=== PATIENT | male | born 1955 | race Caucasian/White ===

== ENCOUNTER 2019-06-04 08:41 | Emergency (ER) | payer MEDICARE, OTHER ==
--- NOTE | 2019-06-04 09:30 | ED Physician Documentation ---
PD HPI DYSPNEA - Stated complaint Stated Complaint: FEET AND ANKLE SWELLING - Chief complaint Chief Complaint: General - History obtained from History obtained from: Patient - History of Present Illness Timing - onset: How many days ago (about 10 days of noting bilateral lower leg edema. No dyspnea nor orthopnea.) Timing - onset during: Light activity (notes legs more swollen during the day and improve with sleep.) Timing - duration: Days (10) Timing - details: Gradual onset Inciting event(s): Other (had been drinking more regularly the past month and also eating more frozen/processed foods with his left him just over a month ago. Also stress because mother in law recently very ill and few days ago. His dog of 15 years also this past week.). No: URI, Immobilization/travel Associated symptoms: Bilateral edema. No: Fever, Cough, Wheezing, Chest pain / discomfort, Palpitations Similar symptoms before: Has not had sx before Recently seen: Not recently seen Review of Systems Constitutional: denies: Fever, Chills Nose: denies: Rhinorrhea / runny nose, Congestion Throat: denies: Sore throat Cardiac: reports: Pedal edema. denies: Chest pain / pressure, Palpitations, Calf pain Respiratory: denies: Cough GI: denies: Abdominal Pain, Nausea, Vomiting, Diarrhea Skin: denies: Lesions Musculoskeletal: denies: Neck pain, Back pain Psychiatric: reports: Depressed (recently due to recent stressful events.), Insomnia. denies: Suicidal, Anxiety PD PAST MEDICAL HISTORY - Past Medical History Past Medical History: Yes Cardiovascular: None Respiratory: Asthma, COPD (but doing better after quiting smoking 6 months ago. ) Neuro: None Endocrine/Autoimmune: None GI: Ulcers Psych: Depression, Anxiety - Past Surgical History Past Surgical History: Yes - Present Medications Home Medications: Ambulatory Orders Medication Instructions Recorded Confirmed No Known Home Medications 06/04/19 06/04/19 - Allergies Allergies/Adverse Reactions: Allergies Allergy/AdvReac Type Severity Reaction Status Date / Time No Known Drug Allergies Allergy Verified 06/04/19 08:58 - Social History Does the pt smoke?: Yes Smoking Status: Former smoker Does the pt drink ETOH?: Yes Does the pt have substance abuse?: No - Family History Family history: denies: CAD PD ED PE NORMAL - Vitals Vital signs reviewed: Yes - General General: Alert and oriented X 3, No acute distress, Well developed/nourished - HEENT HEENT: PERRL (not appearing icteric), Moist mucous membranes, Pharynx benign - Neck Neck: Supple, no meningeal sign, No JVD - Cardiac Cardiac: RRR, No murmur - Respiratory Respiratory: Clear bilaterally (no crackles) - Abdomen Abdomen: Normal bowel sounds, Soft, Non tender, Non distended, Other (liver feels some enlarged to percussion but not tender. ) - Back Back: No CVA TTP - Derm Derm: Normal color, Warm and dry - Extremities Extremities: No tenderness to palpate, Normal ROM s pain, No calf tenderness / cord, Other (1+ bilateral leg and ankle edema. ) - Neuro Neuro: Alert and oriented X 3, No motor deficit, Normal speech Results - Vitals Vitals: Vital Signs - 24 hr 06/04/19 06/04/19 06/04/19 08:45 10:00 13:30 Temperature 36.5 C Heart Rate 77 74 72 Respiratory 18 16 16 Rate Blood Pressure 160/95 H 144/90 H 157/97 H O2 Saturation 100 96 96 Oxygen O2 Source Room air - Labs Labs: Laboratory Tests 06/04/19 06/04/19 06/04/19 09:35 10:30 10:30 WBC 4.1 L RBC 4.12 L Hgb 13.8 L Hct 35.8 L MCV 86.9 MCH 33.5 H MCHC 38.5 H RDW 17.1 H Plt Count 82 L Neut # (Auto) 2.1 Lymph # (Auto) 1.4 L Taliaferro # (Auto) 0.4 Eos # (Auto) 0.1 Baso # (Auto) 0.0 Absolute Nucleated RBC 0.00 Nucleated RBC % 0.0 Sodium 136 Potassium 3.9 Chloride 98 L Carbon Dioxide 24 Anion Gap 13.0 BUN 13 Creatinine 0.6 Estimated GFR (MDRD) 136 Glucose 88 Calcium 8.0 L Magnesium 1.8 Total Bilirubin 3.0 H AST 152 H ALT 122 H Alkaline Phosphatase 205 H Troponin I High Sens B-Natriuretic Peptide Total Protein 5.0 L Albumin 2.8 L Globulin 2.3 Albumin/Globulin Ratio 1.3 Lipase 66 H Urine Color YELLOW Urine Clarity CLEAR Urine pH 6.0 Ur Specific [place] 1.010 Urine Protein NEGATIVE Urine Glucose (UA) NEGATIVE Urine Ketones NEGATIVE Urine Occult Blood NEGATIVE Urine Nitrite NEGATIVE Urine Bilirubin NEGATIVE Urine Urobilinogen 0.2 (NORMAL) Ur Leukocyte Esterase NEGATIVE Ur Microscopic Review NOT INDICATED Urine Culture Comments NOT INDICATED 06/04/19 06/04/19 10:30 10:30 WBC RBC Hgb Hct MCV MCH MCHC RDW Plt Count Neut # (Auto) Lymph # (Auto) Taliaferro # (Auto) Eos # (Auto) Baso # (Auto) Absolute Nucleated RBC Nucleated RBC % Sodium Potassium Chloride Carbon Dioxide Anion Gap BUN Creatinine Estimated GFR (MDRD) Glucose Calcium Magnesium Total Bilirubin AST ALT Alkaline Phosphatase Troponin I High Sens 21.3 H* B-Natriuretic Peptide 52 Total Protein Albumin Globulin Albumin/Globulin Ratio Lipase Urine Color Urine Clarity Urine pH Ur Specific [place] Urine Protein Urine Glucose (UA) Urine Ketones Urine Occult Blood Urine Nitrite Urine Bilirubin Urine Urobilinogen Ur Leukocyte Esterase Ur Microscopic Review Urine Culture Comments PD MEDICAL DECISION MAKING - ED course Complexity details: reviewed results, re-evaluated patient (LFTs are up but does not seem enough likely liver damage for leg edema/portal HTN. He had been eating more processed foods and frozen foods the past month, so I think it is salt retention and dependent edema. No signs of CHF nor RETA. ), considered differential (consider CHF, RETA, liver process, or just dependent edema. ), d/w patient Departure - Departure Disposition: 01 Home, Self Care Clinical Impression: Elevated liver enzymes, Alcohol use, Leg edema Condition: Stable Record reviewed to determine appropriate education?: Yes Instructions: ED Edema Legs Bilateral Follow-Up: Luigi Fowler [Primary Care Provider] - Comments: Your liver enzymes are elevated likely from continued excess alcohol use. Try to cut down on the degree of alcohol use significantly. There are no signs of kidney failure or heart failure nor anemia based on your blood tests. You do not have any obvious gallstones or gallbladder problems to account for elevation of the liver enzymes. I think your leg edema is more related to this dietary and salt intake. Try to have less processed food in your diet and hydrate well. Elevate and rest your legs often during the day. You could use some snug fitting or compression socks during the day to help reduce some of the swelling as well. Follow-up with your primary care next week as planned. Discharge Date/Time: 06/04/19 13:48
--- NOTE | 2019-06-04 10:26 | XRAY Report ---
Reason: dyspnea/ leg edema Procedure Date: 06/04/2019 Accession Number: [id number] / [id number] Procedure: XR - Chest 2 View X-Ray CPT Code: 29064 Final Report FULL RESULT: EXAM: CHEST RADIOGRAPHY EXAM DATE: 06/04/2019 09:57 AM. CLINICAL HISTORY: Dyspnea/ leg edema. COMPARISON: CHEST 2 VIEW PA/LAT 03/31/2016 11:08 AM. TECHNIQUE: 2 views. FINDINGS: Lungs/Pleura: Increased lung markings. No focal opacities. No effusions. Mediastinum: Stable Other: None. IMPRESSION: Obstructive airways disease RADIA
[2019-06-04 10:43] LABS: BILIRUBIN,URINE NEGATIVE (NEGATIVE); GLUCOSE, URINE (UA) NEGATIVE (NEGATIVE); KETONES,URINE (UA) NEGATIVE (NEGATIVE); LEUKOCYTE ESTERASE, URINE NEGATIVE (NEGATIVE); NITRITE,URINE NEGATIVE (NEGATIVE); OCCULT BLOOD,URINE NEGATIVE (NEGATIVE); PROTEIN,URINE NEGATIVE (NEGATIVE); UROBILINOGEN,URINE 0.2 (NORMAL) E.U./dL (NORMAL)
[2019-06-04 10:44] LABS: CLARITY,URINE CLEAR (CLEAR)
[2019-06-04 10:46] LABS: BASOPHILS % (AUTO) 0.5 %; EOSINOPHILS # (AUTO) 0.1 10^3/uL (0.0-0.7); EOSINOPHILS % (AUTO) 1.7 %; HGB - HEMOGLOBIN 13.8 g/dL (14.0-18.0); LYMPHOCYTES # (AUTO) 1.4 10^3/uL (1.5-3.5); LYMPHOCYTES % (AUTO) 35.1 %; MEAN CORPUSCULAR HEMOGLOBIN 33.5 pg (27.0-31.0); MEAN CORPUSCULAR HGB CONC 38.5 g/dL (32.0-36.0); MEAN CORPUSCULAR VOLUME 86.9 fL (80.0-94.0); MONOCYTES # (AUTO) 0.4 10^3/uL (0.0-1.0); MONOCYTES % (AUTO) 9.6 %; NEUTROPHILS # (AUTO) 2.1 10^3/uL (1.5-6.6); NEUTROPHILS % (AUTO) 51.9 %; PLT - PLATELET COUNT 82 10^3/uL (130-450); RED BLOOD COUNT 4.12 10^6/uL (4.70-6.10); RED CELL DISTRIBUTION WIDTH 17.1 % (12.0-15.0); WHITE BLOOD COUNT 4.1 x10^3/uL (4.8-10.8)
[2019-06-04 11:45] LABS: ALBUMIN 2.8 g/dL (3.2-5.5); ALBUMIN/GLOBULIN RATIO 1.3 (1.0-2.2); CREATININE 0.6 mg/dL (0.6-1.2); MAGNESIUM 1.8 mg/dL (1.7-2.8)
--- NOTE | 2019-06-04 13:32 | Ultrasound Report ---
Reason: elevated LFTs Procedure Date: 06/04/2019 Accession Number: [id number] / [id number] Procedure: US - Abdomen Limited CPT Code: Final Report FULL RESULT: EXAM: ABDOMEN ULTRASOUND LIMITED, RUQ EXAM DATE: 06/04/2019 01:05 PM. CLINICAL HISTORY: Elevated LFTs. COMPARISON: ABDOMEN/PELVIS W/ 07/27/2013 4:03 PM. TECHNIQUE: Real-time scanning was performed with static images obtained. FINDINGS: Liver: The liver parenchyma is moderately echogenic diffusely consistent with fatty infiltration. There is some probable fatty sparing near the gallbladder fossa. No evidence for cirrhosis or mass lesion. 16.9 cm. Main portal vein flow: Hepatopetal. Gallbladder: No wall thickening, calculi or sonographic Brown sign evident. Biliary System: CBD measures 5 mm. No intrahepatic or extrahepatic ductal dilatation. Other: The right kidney shows no calculi or hydronephrosis. IMPRESSION: 1. Moderately fatty infiltrated liver with probable fatty sparing near the gallbladder fossa. 2. No convincing evidence for cholelithiasis or cholecystitis. RADIA
[2019-06-04 14:01] VITALS: BP 157/97
== END 2019-06-04 13:48 | disposition home or self-care (01) ==
LOC: ED 08:41
DX: R60.0 Localized edema (principal); R74.8 Abnormal levels of other serum enzymes; Z72.89 Other problems related to lifestyle; Z87.891 Personal history of nicotine dependence
CPT/HCPCS: 36415; 71046; 76705; 80053; 81001; 81003; 83690; 83735; 83880; 84484; 85025; 87086; 93005; 99284

== ENCOUNTER 2020-12-06 05:43 | Outpatient (CLI) | payer MEDICARE, OTHER | END 2020-12-06 05:44 | disposition critical access hospital (66) | LOC: EMS 05:43 | DX: R42 Dizziness and giddiness (principal); K92.0 Hematemesis; K92.1 Melena; M25.552 Pain in left hip | CPT/HCPCS: A0425; A0429 ==

== ENCOUNTER 2020-12-06 05:54 | Inpatient (IN) | payer MEDICARE, OTHER ==
[2020-12-06] MEDS ORDERED: FOLIC ACID INJ 1 MG, THIAMINE INJ 100 MG, MAGNESIUM SULFATE 2 GM, MULTIVITAMIN 10 ML in... IV STA ×5 (06:12)
[2020-12-06] MEDS ORDERED: PANTOPRAZOLE 40 MG VIAL IVP STA (06:13)
[2020-12-06] MEDS ORDERED: MAGNESIUM SULFATE 1 GM/2 ML VIAL ONE (06:19)
[2020-12-06] MEDS ORDERED: FOLIC ACID 5 MG/1 ML 10ML MDV ONE (06:19)
[2020-12-06] MEDS ORDERED: THIAMINE 100 MG/1 ML 2 ML MDV ONE (06:19)
--- NOTE | 2020-12-06 06:38 | ED Physician Documentation ---
History of Present Illness - Stated complaint Stated Complaint: GLF, LEFT HIP PAIN - Chief complaint Chief Complaint: Trauma Ext - History obtained from History obtained from: Patient - History of Present Illness Timing: Yesterday - Additonal information Additional information: 65-year-old male in his usual state of health developed some nausea and vomiting yesterday afternoon and he vomited black material and this was also present in his stool at the same time. He has not had this happen to him previously he vomited about 5 times he has had multiple bowel movements as well. He got up to go somewhere this morning and tripped and fell onto his left hip and his called the ambulance. He complains of pain to the hip and pain with motion of the leg. He did not hit his head and he did not lose consciousness. He has a prior history of alcohol abuse and states that he is a beer drinker and drinks a fair amount on a regular basis. Review of Systems Constitutional: denies: Fever Eyes: denies: Decreased vision Ears: denies: Ear pain Nose: denies: Congestion Throat: denies: Sore throat Cardiac: denies: Chest pain / pressure, Palpitations Respiratory: denies: Dyspnea, Cough GI: reports: Nausea, Vomiting, Bloody / black stool. denies: Abdominal Pain : denies: Dysuria, Frequency Skin: denies: Rash Musculoskeletal: reports: Extremity pain, Joint pain. denies: Neck pain, Back pain Neurologic: denies: Generalized weakness, Focal weakness, Numbness PD PAST MEDICAL HISTORY - Past Medical History Past Medical History: Yes Cardiovascular: None Respiratory: Asthma, COPD Neuro: None Endocrine/Autoimmune: None GI: Ulcers Psych: Depression, Anxiety - Past Surgical History Past Surgical History: Yes - Present Medications Home Medications: Ambulatory Orders Medication Instructions Recorded Confirmed No Known Home Medications 06/04/19 12/06/20 - Allergies Allergies/Adverse Reactions: Allergies Allergy/AdvReac Type Severity Reaction Status Date / Time No Known Drug Allergies Allergy Verified 12/06/20 06:12 - Social History Does the pt smoke?: Yes Smoking Status: Current every day smoker Does the pt drink ETOH?: Yes Does the pt have substance abuse?: No - Immunizations Immunizations are current?: No Immunizations: TDAP current <10years PD ED PE NORMAL - Vitals Vital signs reviewed: Yes - General General: Alert and oriented X 3, Well developed/nourished, Other (Pale appearing male laying on his side interactive and cooperative with maroon stool at the edge of the shorts.) - HEENT HEENT: Atraumatic, PERRL, EOMI - Neck Neck: Supple, no meningeal sign, No bony TTP - Cardiac Cardiac: No murmur, Other (Tachycardic to 130) - Respiratory Respiratory: No respiratory distress, Clear bilaterally - Abdomen Abdomen: Normal bowel sounds, Soft, Non tender, Non distended, No organomegaly - Rectal Rectal: Deferred, Other (Maroon stool covering the buttocks is sampled for fit) - Back Back: No CVA TTP, No spinal TTP - Derm Derm: Warm and dry, No rash, Other (Pale in color) - Extremities Extremities: No deformity, No edema, Other (Pain to movement of the left leg pain to direct palpation over the trochanter) - Neuro Neuro: Alert and oriented X 3, 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, No motor deficit, No sensory deficit, Normal speech Eye Opening: Spontaneous Motor: Obeys Commands Verbal: Oriented GCS Score: 15 Results - Vitals Vitals: Vital Signs - 24 hr 12/06/20 12/06/20 12/06/20 06:01 07:02 07:46 Temperature 37.1 C 36.0 C L 36 C L Heart Rate 133 H 108 H 96 Respiratory 18 26 H 19 Rate Blood Pressure 86/56 L 94/63 109/94 H O2 Saturation 100 99 100 12/06/20 12/06/20 12/06/20 07:49 08:00 08:01 Temperature 36 C L 35.7 C L 35.7 C L Heart Rate 92 91 93 Respiratory 19 16 16 Rate Blood Pressure 109/94 H 98/58 L 98/58 L O2 Saturation 96 12/06/20 12/06/20 12/06/20 08:16 08:36 08:37 Temperature 35.8 C L 35.8 C L 35.8 C L Heart Rate 93 94 91 Respiratory 20 18 16 Rate Blood Pressure 104/57 L 96/61 O2 Saturation 100 12/06/20 12/06/20 12/06/20 08:51 09:07 09:08 Temperature 35.9 C L 36 C L 36 C L Heart Rate 96 90 90 Respiratory 18 14 14 Rate Blood Pressure 90/59 L 107/63 107/63 O2 Saturation 100 12/06/20 12/06/20 09:42 10:00 Temperature 36.1 C L Heart Rate 92 93 Respiratory 12 14 Rate Blood Pressure 108/67 109/65 O2 Saturation 100 100 Oxygen O2 Source Room air - EKG (time done) 0635 Rate: Rate (enter#) (115) Rhythm: Sinus tachycardia, LAE Intervals: RBBB (incomplete) Compare to prior EKG: Changed from prior EKG (SPT 06-04-2019 the rate has increased) Computer interpretation: Agree with computer 0938 Rate: Rate (enter#) (92) Intervals: RBBB (atypical ) Ischemia: ST depression (V3,4 subtle ) Compare to prior EKG: Changed from prior EKG (SPT earlier today the rate has slowed and the subtle ST depression in V3-5 has improved. ) Computer interpretation: Agree with computer - Labs Labs: Microbiology 12/06/20 06:45 Occult Blood - Final Stool Laboratory Tests 12/06/20 12/06/20 12/06/20 06:30 06:30 06:30 WBC 8.4 RBC 1.99 L Hgb 6.7 L* Hct 20.2 L MCV 101.5 H MCH 33.7 H MCHC 33.2 RDW 17.2 H Plt Count 116 L MPV 12.2 H Neut # (Auto) 6.5 Lymph # (Auto) 1.3 L Harnett # (Auto) 0.5 Eos # (Auto) 0.0 Baso # (Auto) 0.0 Absolute Nucleated RBC 0.00 Nucleated RBC % 0.0 PT 17.1 H INR 1.6 H APTT 28.3 Sodium 130 L Potassium 5.3 H Chloride 93 L Carbon Dioxide 19 L Anion Gap 18.0 H BUN 29 H Creatinine 1.0 Estimated GFR (MDRD) 75 L Glucose 131 H Calcium 8.6 Total Bilirubin 2.9 H AST 69 H ALT 25 Alkaline Phosphatase 52 Troponin I High Sens Total Protein 5.5 L Albumin 3.0 L Globulin 2.5 Albumin/Globulin Ratio 1.2 Lipase 44 Nasal Adenovirus (PCR) Nasal B. parapertussis DNA (PCR) Nasal Coronavir 229E PCR Nasal Coronavir HKU1 PCR Nasal Coronavir NL63 PCR Nasal Coronavir OC43 PCR Nasal Enterovir/Rhinovir PCR Nasal Influenza B PCR Nasal Influenza A PCR Nasal Parainfluen 1 PCR Nasal Parainfluen 2 PCR Nasal Parainfluen 3 PCR Nasal Parainfluen 4 PCR Nasal RSV (PCR) Nasal B.pertussis DNA PCR Nasal C.pneumoniae (PCR) Nathan Human Metapneumo PCR Nasal M.pneumoniae (PCR) Nasal SARS-CoV-2 (PCR) Ethyl Alcohol < 5.0 Blood Type Antibody Screen Crossmatch IS Only 12/06/20 12/06/20 12/06/20 06:30 06:30 06:45 WBC RBC Hgb Hct MCV MCH MCHC RDW Plt Count MPV Neut # (Auto) Lymph # (Auto) [place] # (Auto) Eos # (Auto) Baso # (Auto) Absolute Nucleated RBC Nucleated RBC % PT INR APTT Sodium Potassium Chloride Carbon Dioxide Anion Gap BUN Creatinine Estimated GFR (MDRD) Glucose Calcium Total Bilirubin AST ALT Alkaline Phosphatase Troponin I High Sens 482.6 H* Total Protein Albumin Globulin Albumin/Globulin Ratio Lipase Nasal Adenovirus (PCR) NOT DETECTED Nasal B. parapertussis DNA (PCR) NOT DETECTED Nasal Coronavir 229E PCR NOT DETECTED Nasal Coronavir HKU1 PCR NOT DETECTED Nasal Coronavir NL63 PCR NOT DETECTED Nasal Coronavir OC43 PCR NOT DETECTED Nasal Enterovir/Rhinovir PCR NOT DETECTED Nasal Influenza B PCR NOT DETECTED Nasal Influenza A PCR NOT DETECTED Nasal Parainfluen 1 PCR NOT DETECTED Nasal Parainfluen 2 PCR NOT DETECTED Nasal Parainfluen 3 PCR NOT DETECTED Nasal Parainfluen 4 PCR NOT DETECTED Nasal RSV (PCR) NOT DETECTED Nasal B.pertussis DNA PCR NOT DETECTED Nasal C.pneumoniae (PCR) NOT DETECTED Nathan Human Metapneumo PCR NOT DETECTED Nasal M.pneumoniae (PCR) NOT DETECTED Nasal SARS-CoV-2 (PCR) NOT DETECTED Ethyl Alcohol Blood Type AB POSITIVE Antibody Screen NEGATIVE Crossmatch IS Only See Detail 12/06/20 09:51 WBC RBC Hgb Hct MCV MCH MCHC RDW Plt Count MPV Neut # (Auto) Lymph # (Auto) Harnett # (Auto) Eos # (Auto) Baso # (Auto) Absolute Nucleated RBC Nucleated RBC % PT INR APTT Sodium Potassium Chloride Carbon Dioxide Anion Gap BUN Creatinine Estimated GFR (MDRD) Glucose Calcium Total Bilirubin AST ALT Alkaline Phosphatase Troponin I High Sens 335.6 H* Total Protein Albumin Globulin Albumin/Globulin Ratio Lipase Nasal Adenovirus (PCR) Nasal B. parapertussis DNA (PCR) Nasal Coronavir 229E PCR Nasal Coronavir HKU1 PCR Nasal Coronavir NL63 PCR Nasal Coronavir OC43 PCR Nasal Enterovir/Rhinovir PCR Nasal Influenza B PCR Nasal Influenza A PCR Nasal Parainfluen 1 PCR Nasal Parainfluen 2 PCR Nasal Parainfluen 3 PCR Nasal Parainfluen 4 PCR Nasal RSV (PCR) Nasal B.pertussis DNA PCR Nasal C.pneumoniae (PCR) Nathan Human Metapneumo PCR Nasal M.pneumoniae (PCR) Nasal SARS-CoV-2 (PCR) Ethyl Alcohol Blood Type Antibody Screen Crossmatch IS Only - Rads (name of study) hip L Radiology: Prelim report reviewed (Impression: Comminuted intertrochanteric femur fracture, displaced and angulated.), EMP read indepedently, See rad report PD MEDICAL DECISION MAKING - ED course Complexity details: reviewed old records, reviewed results, re-evaluated patient, considered differential, d/w patient ED course: 65-year-old male presents to the emergency department with an upper GI bleed which is left him with an H&H of 6.7 and 20.2 and he arrives to the emergency department tachycardic and hypotensive with an injury to his left hip. At shift change Dr. Orlando places 2 peripheral IVs. He responds to fluid administration with reduction in his heart rate and improvement in his blood pressure and he is administered morphine for pain control. He is placed onto an octreotide drip as well as a bolus of pantoprazole. A nasal swab was obtained for Covid surveillance. Beds are not available at any of the [facility] today (We called [facility], and [facility] who is the patient's insurance carrier and they indicate there are no beds available in the area). The surgeon Dr. Darnell is can contact in the case and agrees to provide backup to our services. The hospitalist is contacted and the case there is concern with the patient's elevation in his troponin. His electrocardiogram shows tachycardia without obvious signs of ischemia. The assumption is demand ischemia and the hospitalist requests a second troponin. This patient's care exceeds what our hospital is usually willing to accept. Under the circumstances we will need to provide care for this patient here. Our orthopedic surgeon Dr. Madrid is willing to operate on the patient with the support of the medical team. The repeat troponin is delayed until after the transfusion by lab protocol. - Critical Care Time(min): 40 Time Includes: Direct patient care, Review records, Reassess patient, Document care, Coordinate care, Medical consult Data interpretation: Labs, Pulse ox Procedures included in critical care time: Peripheral IV Departure - Departure Disposition: 66 [facility] DC/Xfer Clinical Impression: GI bleeding Qualifiers: GI bleed type/associated pathology: melena Qualified Code(s): K92.1 - Melena Hip fracture, left Qualifiers: Encounter type: initial encounter Fracture type: closed Qualified Code(s): S72.002A - Fracture of unspecified part of neck of left femur, initial encounter for closed fracture
[2020-12-06] MEDS ORDERED: OCTREOTIDE 500 MCG in SODIUM CHLORIDE 0.9% 100ML 95 ML IV STA (06:40)
[2020-12-06 06:46] LABS: BASOPHILS % (AUTO) 0.1 %; HCT - HEMATOCRIT 20.2 % (42.0-52.0); LYMPHOCYTES # (AUTO) 1.3 10^3/uL (1.5-3.5); LYMPHOCYTES % (AUTO) 15.6 %; MEAN CORPUSCULAR HEMOGLOBIN 33.7 pg (27.0-31.0); MEAN CORPUSCULAR HGB CONC 33.2 g/dL (32.0-36.0); MEAN CORPUSCULAR VOLUME 101.5 fL (80.0-94.0); MEAN PLATELET VOLUME 12.2 fL (7.4-11.4); MONOCYTES # (AUTO) 0.5 10^3/uL (0.0-1.0); MONOCYTES % (AUTO) 6.1 %; NEUTROPHILS # (AUTO) 6.5 10^3/uL (1.5-6.6); NEUTROPHILS % (AUTO) 77.6 %; PLT - PLATELET COUNT 116 10^3/uL (130-450); RED BLOOD COUNT 1.99 10^6/uL (4.70-6.10); RED CELL DISTRIBUTION WIDTH 17.2 % (12.0-15.0); WHITE BLOOD COUNT 8.4 x10^3/uL (4.8-10.8)
[2020-12-06] MEDS ORDERED: MORPHINE 2 MG/ML CARPUJECT IVP STA ×2 (06:47→07:51)
[2020-12-06] MEDS ORDERED: ONDANSETRON 4 MG/2 ML VIAL IVP STA (06:47)
[2020-12-06 06:48] LABS: HGB - HEMOGLOBIN 6.7 g/dL (14.0-18.0)
[2020-12-06 06:49] LABS: INR 1.6 (0.8-1.2); PT - PROTHROMBIN TIME 17.1 secs (9.9-12.6)
[2020-12-06 06:56] LABS: PARTIAL THROMBOPLASTIN TIME 28.3 secs (24.9-33.3)
[2020-12-06] MEDS ORDERED: OCTREOTIDE 100 MCG/ML VIAL ONE (07:00)
[2020-12-06 07:01] LABS: ALBUMIN/GLOBULIN RATIO 1.2 (1.0-2.2); ALKALINE PHOSPHATASE 52 IU/L (42-121); ALT ALANINE AMINOTRANSFERASE 25 IU/L (10-60); AST ASPARTATE AMINOTRANSFERASE 69 IU/L (10-42); BILIRUBIN,TOTAL 2.9 mg/dL (0.2-1.0); BUN - BLOOD UREA NITROGEN 29 mg/dL (6-20); CALCIUM 8.6 mg/dL (8.5-10.3); CARBON DIOXIDE - CO2 19 mmol/L (21-32); CHLORIDE 93 mmol/L (101-111); ETOH - ETHANOL < 5.0 mg/dL; GFR - MDRD 75 (>89); GLUCOSE 131 mg/dL (70-100); LIPASE 44 U/L (22-51); POTASSIUM 5.3 mmol/L (3.5-5.0); SODIUM 130 mmol/L (135-145); TOTAL PROTEIN 5.5 g/dL (6.7-8.2)
[2020-12-06 07:45] LABS: CORONAVIRUS 229E-RESP PCR NOT DETECTED; CORONAVIRUS HKU1-RESP PCR NOT DETECTED; CORONAVIRUS NL63-RESP PCR NOT DETECTED; CORONAVIRUS OC43-RESP PCR NOT DETECTED; HUMAN METAPNEUMOVIRUS NOT DETECTED; INFLUENZA A- RESP PCR PANEL NOT DETECTED; INFLUENZA B - RESP PCR PANEL NOT DETECTED; PARAINFLUENZA VIRUS 1 NOT DETECTED; PARAINFLUENZA VIRUS 2 NOT DETECTED; RHINOVIRUS/ENTEROVIRUS NOT DETECTED; SARS-CoV-2 -RESP PCR PANEL NOT DETECTED
[2020-12-06 07:46] LABS: B. PARAPERTUSSIS- RESP PCR PAN NOT DETECTED; B. PERTUSSIS- RESP PCR PANEL NOT DETECTED; C. PNEUMONIAE- RESP PCR PANEL NOT DETECTED; M. PNEUMONIAE- RESP PCR PANEL NOT DETECTED; PARAINFLUENZA VIRUS 3 NOT DETECTED; PARAINFLUENZA VIRUS 4 NOT DETECTED; RSV- RESP PCR PANEL NOT DETECTED
--- OUTSIDE RECORDS SUMMARY | 2020-12-06 08:24 | EXTERNAL MEDICAL SUMMARY RPT | Continuity of Care Document ---
:1955 Demographics Phone Unavailable Preferred Language Unknown Marital Status Unknown Jehovah'S Witness Affiliation Unknown Race Unknown Ethnic Group Unknown Author Organization [place] Address [address] [place] [address] Phone Allergies Encounters Medications Problems Results
--- NOTE | 2020-12-06 08:37 | XRAY Report ---
PROCEDURE: Hip w/Pelvis 2-3V LT INDICATIONS: Trauma, fall, left hip pain TECHNIQUE: AP pelvis with lateral view(s) of the left hip(s). COMPARISON: None. FINDINGS: Bones: There is a comminuted intertrochanteric fracture with mild displacement of fracture fragments and medial angulation of the distal fracture fragment Soft tissues: The visualized bowel gas pattern is normal. No suspicious soft tissue calcifications. IMPRESSION: Comminuted intratrochanteric femur fracture, displaced and angulated. Reviewed by: Mian Dhillon MD on 12/06/2020 8:35 AM PDT Approved by: Mian Dhillon MD on 12/06/2020 8:35 AM PDT Station ID: [id number]
[2020-12-06] MEDS ORDERED: PANTOPRAZOLE 80 MG in SODIUM CHLORIDE 0.9% 100ML 100 ML IV STA (08:42)
--- NOTE | 2020-12-06 10:14 | CONSULTATION NOTE ---
Referring Provider Name of Referring Provider:: Dr. Carroll Consult Date: 12/06/20 Chief Complaint - Chief Complaint Chief Complaint: Gastrointestinal bleed with hemodynamic/hemorrhagic shock History of Present Illness - Admitted From Admitted From:: EMS - History Obtained From Records Reviewed: Patient and emergency room physician History obtained from: Patient and emergency room physician Exam Limitations: None - History of Present Illness HPI Comment/Other: 65-year-old male presenting for hematochezia, hematemesis, gastrointestinal bleed. [place] with sudden presyncope and fall. Hip fracture sustained. Noted hematemesis and hematochezia. Brought in by EMS. Known history of peptic ulcer disease with associated bleed. Profound acute blood loss anemia with hypotension and associated shock. Aggressively resuscitated here in the emergency room. Known history of alcohol use and abuse. No prior surgical history other than upper endoscopy. No reported family history. Notable past surgical history to include endoscopy. Patient reports change in bowel function, claim bleeding per rectum, and also persistent reflux associated symptoms. Patient has a history of alcohol use as well as associated abuse. Eyes any repo rted history of failure or cirrhosis. No history of heart attack or stroke. Patient takes no systemic anticoagulation. Endoscopic history includes upper endoscopy at the time of his prior gastroint estinal hemorrhage. In addition to his hip fracture patient is notable for significant elevated troponin. There are no local beds available at other facilities. History - Past Medical History Cardiovascular: reports: None Respiratory: reports: Asthma, COPD Neuro: reports: None Endocrine/Autoimmune: reports: None GI: reports: Ulcers Psych: reports: Depression, Anxiety Meds/Allgy - Home Medications Home Medications: Ambulatory Orders Medication Instructions Recorded Confirmed No Known Home Medications 06/04/19 12/06/20 - Allergies Allergies/Adverse Reactions: Allergies Allergy/AdvReac Type Severity Reaction Status Date / Time No Known Drug Allergies Allergy Verified 12/06/20 06:12 Review of Systems - Constitutional Constitutional: reports: Fatigue, Malaise - Cardiovascular Cariovascular: reports: Irregular heart rate, Lightheadedness, Syncope, Exertional dyspnea - Respiratory Respiratory: reports: Cough, Wheezing, SOB at rest - Gastrointestinal Gastrointestinal: reports: Black stools, Bloody stools, August blood emesis Exam - Vital Signs Reviewed Vital Signs: Yes Vital Signs: Vital Signs x48h Temp Pulse Resp BP Pulse Ox 12/06/20 09:42 36.1 C L 92 12 108/67 100 12/06/20 09:08 36 C L 90 14 107/63 100 12/06/20 09:07 36 C L 90 14 107/63 12/06/20 08:51 35.9 C L 96 18 90/59 L 12/06/20 08:37 35.8 C L 91 16 96/61 12/06/20 08:36 35.8 C L 94 18 100 12/06/20 08:16 35.8 C L 93 20 104/57 L 12/06/20 08:01 35.7 C L 93 16 98/58 L 12/06/20 08:00 35.7 C L 91 16 98/58 L 96 12/06/20 07:49 36 C L 92 19 109/94 H 12/06/20 07:46 36 C L 96 19 109/94 H 100 12/06/20 07:02 36.0 C L 108 H 26 H 94/63 99 12/06/20 06:01 37.1 C 133 H 18 86/56 L 100 - Physical Exam Comments/Other: General Appearance: positive: No acute distress Eyes Bilateral: positive: Normal inspection ENT: positive: ENT inspection nml Neck: positive: Nml inspection Respiratory: positive: Chest non-tender, No respiratory distress, Breath sounds nml. negative: Wheezes, Rales, Rhonchi Cardiovascular: positive: Regular rate & rhythm Abdomen: positive: No distention, Other. negative: Guarding, Rebound Extremities: positive: Non-tender, Full ROM, Nml appearance Neurologic/Psychiatric: positive: Oriented x3, CN's nml (2-12) Conclusion and Plan - Lab Results Microbiology Results 12/06/20 06:45 Stool Occult Blood - Final Laboratory Results 12/06/20 06:45: Nasal Adenovirus (PCR) NOT DETECTED, Nasal B. parapertussis DNA (PCR) NOT DETECTED, Nasal Coronavir 229E PCR NOT DETECTED, Nasal Coronavir HKU1 PCR NOT DETECTED, Nasal Coronavir NL63 PCR NOT DETECTED, Nasal Coronavir OC43 PCR NOT DETECTED, Nasal Enterovir/Rhinovir PCR NOT DETECTED, Nasal Influenza B PCR NOT DETECTED, Nasal Influenza A PCR NOT DETECTED, Nasal Parainfluen 1 PCR NOT DETECTED, Nasal Parainfluen 2 PCR NOT DETECTED, Nasal Parainfluen 3 PCR NOT DETECTED, Nasal Parainfluen 4 PCR NOT DETECTED, Nasal RSV (PCR) NOT DETECTED, Nasal B.pertussis DNA PCR NOT DETECTED, Nasal C.pneumoniae (PCR) NOT DETECTED, Nathan Human Metapneumo PCR NOT DETECTED, Nasal M.pneumoniae (PCR) NOT DETECTED, Nasal SARS-CoV-2 (PCR) NOT DETECTED 12/06/20 06:30: Blood Type AB POSITIVE, Antibody Screen NEGATIVE, Crossmatch IS Only See Detail 12/06/20 06:30: Troponin I High Sens 482.6 H* 12/06/20 06:30: Sodium 130 L, Potassium 5.3 H, Chloride 93 L, Carbon Dioxide 19 L, Anion Gap 18.0 H, BUN 29 H, Creatinine 1.0, Estimated GFR (MDRD) 75 L, Glucose 131 H, Calcium 8.6, Total Bilirubin 2.9 H, AST 69 H, ALT 25, Alkaline Phosphatase 52, Total Protein 5.5 L, Albumin 3.0 L, Globulin 2.5, Albumin/Globulin Ratio 1.2, Lipase 44, Ethyl Alcohol < 5.0 12/06/20 06:30: PT 17.1 H, INR 1.6 H, APTT 28.3 12/06/20 06:30: WBC 8.4, RBC 1.99 L, Hgb 6.7 L*, Hct 20.2 L, MCV 101.5 H, MCH 33.7 H, MCHC 33.2, RDW 17.2 H, Plt Count 116 L, MPV 12.2 H, Neut # (Auto) 6.5, Lymph # (Auto) 1.3 L, Lares # (Auto) 0.5, Eos # (Auto) 0.0, Baso # (Auto) 0.0, Absolute Nucleated RBC 0.00, Nucleated RBC % 0.0 - Diagnosis Diagnosis: 1. Hypovolemia,/hemorrhagic shock. 2. Demand ischemia versus myocardial infarction. 3. COPD/tobacco abuse. 4. Alcohol abuse possible class a cirrhotic. 5. Gastrointestinal hemorrhage. 6. Hip fracture, acute - Plan Plan: 1. Admit to ICU, with hospitalist service 2. Consider central venous triple-lumen catheter for resuscitation 3. Consider arterial line for close hemodynamic monitoring 4. Plan upper endoscopy to evaluate source, will consider colonoscopy however given urgency of intervention will defer bowel prep at this time 5. Aggressive resuscitation 6. Trend troponins consider echocardiogram serial EKGs. 7. Bowel rest serial H&H and transfuse as necessary 8. PPI infusion and consider Carafate pending results 9. Discussed with Dr. Smith who is currently scoping today
[2020-12-06] MEDS ORDERED: ONDANSETRON 4 MG/2 ML VIAL IVP PRN (10:24)
--- NOTE | 2020-12-06 10:30 | HISTORY & PHYSICAL EXAMINATION ---
Chief Complaint - Chief Complaint Chief Complaint: Left hip pain History of Present Illness - Admitted From Admitted From:: Home - History Obtained From Records Reviewed: Yes History obtained from: Patient, ER Physician, EMR - History of Present Illness HPI Comment/Other: This is a 65-year-old male with a past medical history significant for COPD and alcohol abuse who presents today after having a fall at home and complaining of left hip pain. He states he got up this morning at around 3:30 AM and when he was walking to the bathroom he fell. He was able to get himself back up but he fell again shortly after he landed on his left hip. He had difficulty getting up after this and so he came to the emergency department. He denies any syncope or loss of consciousness. He denies any chest pain or difficulty breathing prior to the event. He states he is not on any blood thinners or aspirin. He has not seen a doctor in quite a few years and takes no medications except for Tylenol as needed. He does report being diagnosed with otitis media a few weeks ago for which he was treated with antibiotics. He does tell me that yesterday he had a few episodes of vomiting and diarrhea. His stool was black and tarry and his vomit was quite dark as well. He does drink alcohol on a daily basis. He currently drinks about 18 beers a day and has been doing so since 2011. Prior to that, he had also been drinking at least 5-6 beers a day. He denies any history of alcohol withdrawal or liver disease. He has never had a colonoscopy. He does believe that he had an endoscopy in the past but cannot recall the results of it. In the emergency department, he was found to be afebrile. He was initially tachycardic with heart rate in the 130s. He was hypotensive with systolic in the 80s but this improved to the 100s after resuscitation. He was not tachypneic and was saturating well on room air. Initial labs reveal hemoglobin of 6.7, INR of 1.6, sodium of 130, and a troponin of 485. His EKG did reveal ST depressions in V4 to V6. X-ray of the left hip revealed a fracture. He was given 1 unit of packed red blood cell and transferred to higher level of care was attempted but unfortunately, there are no beds available at any facilities. Given this, he will be admitted here for further medical management. I did discuss goals of care and he would like to be a full code. History - Past Medical History Cardiovascular: reports: None Respiratory: reports: COPD Neuro: reports: None Endocrine/Autoimmune: reports: None GI: reports: Ulcers Psych: reports: Depression, Anxiety - Past Surgical History General: reports: EGD - Family & Social History Family History: Father: , Brother: Family History Comment/Other: His father at the age of 61 from lymphoma. His older brother in his early 60s from what he believes is liver cancer. His younger brother in his late 50s from unknown causes. Living arrangement: At home Living Situation: With spouse/s.o. Social History Notes: He lives at home with his . 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 He smoked a pack a day for ov er 40 years and quit 2 years ago. He has been drinking 8-10 beers a day for the past 9 years and was previously drinking 5-6 beers a day prior to this. - Substance History Abuse: Recurrent use of substance despite neg consequences: Alcohol Meds/Allgy - Home Medications Home Medications: Ambulatory Orders Medication Instructions Recorded Confirmed No Known Home Medications 06/04/19 12/06/20 - Allergies Allergies/Adverse Reactions: Allergies Allergy/AdvReac Type Severity Reaction Status Date / Time No Known Drug Allergies Allergy Verified 12/06/20 06:12 Review of Systems - Constitutional Constitutional: denies: Fever, Chills - Cardiovascular Cariovascular: denies: Palpitations, Chest pain, Edema, Syncope, Exertional dyspnea, Decr. exercise tolerance - Respiratory Respiratory: denies: Cough, SOB at rest, SOB with exertion - Gastrointestinal Gastrointestinal: reports: Diarrhea, Bloody stools, Nausea, Vomiting, Coffee grounds emesis. denies: Abdominal pain - Genitourinary Genitourinary: denies: Dysuria, Frequency, Urgency, Hematuria - Musculoskeletal Musculoskeletal: reports: Limited range of motion, Joint pain - Neurological Neurological: reports: General weakness. denies: Focal weakness - Hematologic/Lymphatic Hematologic/Lymphatic: denies: Anemia, Bleeding tendencies - All Other Systems All Other Systems: reports: Reviewed and negative Prior Level of Functionality: He is independent with his ADLs. Exam - Vital Signs Reviewed Vital Signs: Yes Vital Signs: Vital Signs x48h Temp Pulse Resp BP Pulse Ox 12/06/20 10:00 93 14 109/65 100 12/06/20 09:42 36.1 C L 92 12 108/67 100 12/06/20 09:08 36 C L 90 14 107/63 100 12/06/20 09:07 36 C L 90 14 107/63 12/06/20 08:51 35.9 C L 96 18 90/59 L 12/06/20 08:37 35.8 C L 91 16 96/61 12/06/20 08:36 35.8 C L 94 18 100 12/06/20 08:16 35.8 C L 93 20 104/57 L 12/06/20 08:01 35.7 C L 93 16 98/58 L 12/06/20 08:00 35.7 C L 91 16 98/58 L 96 12/06/20 07:49 36 C L 92 19 109/94 H 12/06/20 07:46 36 C L 96 19 109/94 H 100 12/06/20 07:02 36.0 C L 108 H 26 H 94/63 99 12/06/20 06:01 37.1 C 133 H 18 86/56 L 100 - Physical Exam General Appearance: positive: No acute distress, Alert Eyes Bilateral: positive: PERRL, Other (Scleral icterus noted) ENT: positive: ENT inspection nml, Pharynx nml. negative: Pharyngeal erythema Neck: positive: Nml inspection Respiratory: positive: No respiratory distress. negative: Wheezes, Rales Cardiovascular: positive: Tachycardia. negative: Irregularly irregular, PMI displaced laterally, Systolic murmur Abdomen: positive: Non-tender, No distention. negative: Tenderness, Guarding, Rebound Skin: positive: Warm, Dry, Pallor Extremities: positive: No pedal edema, Other (Extremity is externally rotated. He does have tenderness over the lateral and medial aspect of the left hip. No erythema.) Neurologic/Psychiatric: negative: Disoriented to person, Disoriented to place Conclusion/Plan - Problem List (1) Upper GI bleed Conclusion/Plan: Suspect that he has an upper GI bleed and given his alcohol use, the concern is for esophageal varices or gastritis/ulcer. His hemoglobin is less than 7 and he continues to have evidence of active bleeding. The plan is for endoscopy today with general surgery. We will place him on Protonix 40 mg IV twice daily as well as octreotide. We have given him a dose of ceftriaxone given the concern for possible cirrhosis. Continue to trend his hemoglobin and transfuse for goal hemoglobin greater than 8. (2) Acute blood loss anemia Conclusion/Plan: This is secondary to the GI bleed. His hemoglobin is less than 7 and he has been transfused 1 unit of packed red blood cell already. We will recheck hemoglobin this afternoon and transfuse for goal hemoglobin greater than 8 given elevated troponin. Continue to hold all anticoagulation. (3) Elevated troponin Conclusion/Plan: Initial troponin was nearly 500 and this has decreased to the 300s on recheck. Initial EKG did show ST depressions in V4 through V6. Repeat EKG shows improvement. He has no chest pain or dyspnea. It is unclear if this is true ACS or demand ischemia given his anemia. He is not a candidate for anticoagulation given the upper GI bleed. We have ordered an echocardiogram to assess for any wall motion abnormalities. We will continue to trend his troponin and monitor on telemetry. Given the significant elevated troponin, he would ideally be operated on at a higher level of care but given the lack of bed availability, we may need to intervene on his left hip fracture here at this facility. (4) Hip fracture, left Conclusion/Plan: This is secondary to the fall he had this morning. Imaging revealed a comminuted intratrochanteric femur fracture that is displaced and angulated. Orthopedic surgery will evaluate him today. We will plan for surgical intervention here tomorrow if we cannot transfer him to higher level of care in the interim. Morphine IV as needed for pain control. N.p.o. status. SCDs for DVT prophylaxis given his GI bleed. Qualifiers: Encounter type: initial encounter Fracture type: closed Qualified Code (s): S72.002A - Fracture of unspecified part of neck of left femur, initial encounter for closed fracture (5) Elevated liver enzymes Conclusion/Plan: This is likely secondary to his alcohol abuse given the elevation in his AST. He does have mild thrombocytopenia as well and his INR is 1.6. We will continue to monitor his LFTs. (6) Alcohol abuse Conclusion/Plan: His alcohol level is undetectable and he currently shows no evidence of withdrawal. We will monitor him closely and consider CIWA protocol and Ativan if necessary. - Lab Results Lab results reviewed: Yes Fish Bones: 12/06/20 06:30 12/06/20 06:30 - Diagnostic Imaging Results Diagnostic Imaging Results: positive: Final report reviewed - EKG Results EKG Interpreted Independently: Yes EKG Comparison: Changed from prior EKG (ST depressions are now present compared to prior EKG.) EKG Findings: EKG shows sinus tachycardia with ST depressions in V4 to V6. Core Measures - Anticipated LOS I expect patient to be DC'd or transferred within 96 hours.: Yes - Issues Hospital Issues and Management Plan: 65-year-old male presents with a fall front of a left hip fracture as well as an upper GI bleed with acute blood loss anemia and possible NSTEMI. Will admit for transfusion of packed red blood cell, endoscopy, and orthopedic intervention. - DVT/VTE - Prophylaxis VTE/DVT Device ordered at admit?: Yes VTE/DVT Prophylaxis med ordered at admit?: No Not Ordered - Medical Reason: Contraindicated
--- OUTSIDE RECORDS SUMMARY | 2020-12-06 10:39 | EXTERNAL MEDICAL SUMMARY RPT | Continuity of Care Document ---
:1955 Demographics Phone Unavailable Preferred Language Unknown Marital Status Unknown Presybeterian Affiliation Unknown Race Unknown Ethnic Group Unknown Author Organization [facility] Address [address] [place] [address] Phone Allergies Encounters Medications Problems Results
[2020-12-06] MEDS: LACTATED RINGERS 1,000 ML IV SCH ×2 (11:15→20:42)
[2020-12-06] MEDS: MORPHINE 2 MG/ML CARPUJECT IVP PRN ×3 (11:16→18:50)
[2020-12-06] MEDS: SODIUM CHLORIDE FLUSH 0.9% 10 ML SYRINGE IVP PRN ×5 (11:30→20:35)
[2020-12-06] MEDS: cefTRIAXone 1 GM in SODIUM CHLORIDE 0.9% MINIBAG 100 ML IV SCH (11:30)
--- NOTE | 2020-12-06 12:07 | CONSULTATION NOTE ---
Consultation Report: consulted by hospitalist for possible CVL placement. Reviewed pt's chart. Will hold on placement of CVL due to elevated INR. Will refer to hospitalist to manage INR. Pt currently has 3 PIV and managing well with that IV access.
[2020-12-06] MEDS ORDERED: PHYTONADIONE 10 MG/ML AMP PO ONE (12:32)
[2020-12-06] MEDS ORDERED: CHERRY SYRUP 10 ML UDC PO ONE (12:32)
[2020-12-06] MEDS ORDERED: PHYTONADIONE INJ (ADULT) 5 MG in SODIUM CHLORIDE 0.9% 50 ML IV ONE (12:57)
[2020-12-06 13:38] LABS: HCT - HEMATOCRIT 20.3 % (42.0-52.0)
[2020-12-06 13:39] LABS: HGB - HEMOGLOBIN 6.8 g/dL (14.0-18.0)
[2020-12-06 13:49] LABS: CREATININE 0.9 mg/dL (0.6-1.2); POTASSIUM 5.2 mmol/L (3.5-5.0)
--- NOTE | 2020-12-06 14:36 | XRAY Report ---
PROCEDURE: Chest 1 View X-Ray INDICATIONS: Elevated troponin. Cough. TECHNIQUE: One view of the chest was acquired. COMPARISON: Chest x-ray dated 06/04/2019 FINDINGS: Surgical changes and devices: None. Lungs and pleura: No pleural effusions or pneumothorax. Lungs are clear. Mediastinum: Mediastinal contours appear normal. Heart size is normal. Bones and chest wall: No suspicious bony lesions. Overlying soft tissues appear unremarkable. IMPRESSION: No acute process. Reviewed by: Kiera Restrepo MD on 12/06/2020 2:35 PM PDT Approved by: Kiera Restrepo MD on 12/06/2020 2:35 PM PDT Station ID: [id number]
[2020-12-06] MEDS: OCTREOTIDE 500 MCG in SODIUM CHLORIDE 0.9% 100ML 99 ML IV SCH (16:24)
--- NOTE | 2020-12-06 17:32 | CONSULTATION NOTE ---
Referring Provider Name of Referring Provider:: Rosalind Carroll and Tesha Consult Date: 12/06/20 Chief Complaint - Chief Complaint Chief Complaint: Marked pain left hip and upper thigh following fall early this morning History of Present Illness - History Obtained From History obtained from: Patient Exam Limitations: None - History of Present Illness HPI Comment/Other: This is a 65-year-old man who lives in [place]. He is retired since 2011. He enjoys outdoor activities including golf at least once a week. He was at a casino last night when his , became sick and was having emesis with blood. He drove home. At home, his legs just gave out, fell and injured his left hip. He is unable to walk and had marked pain about the left hip and upper thigh. He was brought into the hospital, found to have a gastrointestinal bleed with hypotension and marked anemia. Does have a history of regular alcohol use. He has been admitted to the intensive care unit. He was to have a endoscopy but this was postponed because of elevated troponin. Patient denies chest pain, shortness of breath, syncope associated with the fall. He can remember the fall that occurred at home prior to admission. He denies previous problems with left hip. History - Past Medical History Cardiovascular: reports: None Respiratory: reports: COPD Neuro: reports: None Endocrine/Autoimmune: reports: None GI: reports: Ulcers : reports: None Psych: reports: Depression, Anxiety Musculoskeletal: reports: None Derm: reports: None - Past Surgical History General: reports: EGD - Family & Social History Family History: Father: , Brother: Family History Comment/Other: His father at the age of 61 from lymphoma. His older brother in his early 60s from what he believes is liver cancer. His younger brother in his late 50s from unknown causes. Living arrangement: At home Living Situation: With spouse/s.o. Social History Notes: He lives at home with his . 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 He smoked a pack a day for over 40 years and quit 2 years ago. He has been drinking 8-10 beers a day for the past 9 years and was previously drinking 5-6 beers a day prior to this. - Substance History Abuse: Recurrent use of substance despite neg consequences: Alcohol Meds/Allgy - Home Medications Home Medications: Ambulatory Orders Medication Instructions Recorded Confirmed No Known Home Medications 06/04/19 12/06/20 - Allergies Allergies/Adverse Reactions: Allergies Allergy/AdvReac Type Severity Reaction Status Date / Time No Known Drug Allergies Allergy Verified 12/06/20 06:12 Exam - Vital Signs Vital Signs: Vital Signs x48h Temp Pulse Pulse Resp BP BP Pulse Ox 12/06/20 17:12 37.1 C 96 16 125/61 12/06/20 17:00 100 21 113/70 100 12/06/20 16:00 94 19 106/69 100 12/06/20 15:45 36.5 C 12/06/20 15:00 95 29 H 100/66 99 12/06/20 14:45 36.4 C L 89 17 106/62 12/06/20 14:30 36.6 C 98 22 119/60 12/06/20 14:00 93 23 99/63 100 12/06/20 13:00 93 14 104/70 98 12/06/20 12:20 103 H 19 109/66 100 12/06/20 11:50 100 19 109/67 100 12/06/20 11:09 36.5 C 100 17 116/72 100 12/06/20 10:45 107 H 16 119/88 H 100 12/06/20 10:34 36.0 C L 132 H 26 H 119/82 H 100 12/06/20 10:00 93 14 109/65 100 12/06/20 09:42 36.1 C L 92 12 108/67 100 - Physical Exam General Appearance: positive: No acute distress, Alert Peripheral Pulses: positive: 1+ Skin: positive: Warm Extremities: negative: Other (Left leg is shortened and externally rotated, marked pain with any attempted passive movement of left hip. There is no thigh hematoma. Skin intact over left hip. He does have tenderness to the trochanteric region left hip. All 3 other extremities appeared normal without sign of recent trauma) Neurologic/Psychiatric: positive: Oriented x3, Motor nml, Sensation nml Conclusion and Plan - Lab Results Microbiology Results 12/06/20 06:45 Stool Occult Blood - Final Laboratory Results 12/06/20 15:56: Troponin I High Sens 358.8 H* 12/06/20 13:27: Sodium 133 L, Potassium 5.2 H, Chloride 99 L, Carbon Dioxide 20 L, Anion Gap 14.0 H, BUN 31 H, Creatinine 0.9, Estimated GFR (MDRD) 85 L, Glucose 124 H, Calcium 8.0 L 12/06/20 13:27: Hgb 6.8 L*, Hct 20.3 L 12/06/20 13:27: Troponin I High Sens 417.5 H* 12/06/20 11:52: POC Whole Bld Glucose 113 H 12/06/20 11:15: Nasal Screen MRSA (PCR) NEGATIVE 12/06/20 10:42: Magnesium 2.3 12/06/20 10:42: Phosphorus 4.2 12/06/20 09:51: Troponin I High Sens 335.6 H* 12/06/20 06:45: Nasal Adenovirus (PCR) NOT DETECTED, Nasal B. parapertussis DNA (PCR) NOT DETECTED, Nasal Coronavir 229E PCR NOT DETECTED, Nasal Coronavir HKU1 PCR NOT DETECTED, Nasal Coronavir NL63 PCR NOT DETECTED, Nasal Coronavir OC43 PCR NOT DETECTED, Nasal Enterovir/Rhinovir PCR NOT DETECTED, Nasal Influenza B PCR NOT DETECTED, Nasal Influenza A PCR NOT DETECTED, Nasal Parainfluen 1 PCR NOT DETECTED, Nasal Parainfluen 2 PCR NOT DETECTED, Nasal Parainfluen 3 PCR NOT DETECTED, Nasal Parainfluen 4 PCR NOT DETECTED, Nasal RSV (PCR) NOT DETECTED, Nasal B.pertussis DNA PCR NOT DETECTED, Nasal C.pneumoniae (PCR) NOT DETECTED, Nathan Human Metapneumo PCR NOT DETECTED, Nasal M.pneumoniae (PCR) NOT DETECTED, Nasal SARS-CoV-2 (PCR) NOT DETECTED 12/06/20 06:30: Blood Type AB POSITIVE, Antibody Screen NEGATIVE, Crossmatch IS Only See Detail 12/06/20 06:30: Troponin I High Sens 482.6 H* 12/06/20 06:30: Sodium 130 L, Potassium 5.3 H, Chloride 93 L, Carbon Dioxide 19 L, Anion Gap 18.0 H, BUN 29 H, Creatinine 1.0, Estimated GFR (MDRD) 75 L, Glucose 131 H, Calcium 8.6, Total Bilirubin 2.9 H, AST 69 H, ALT 25, Alkaline Phosphatase 52, Total Protein 5.5 L, Albumin 3.0 L, Globulin 2.5, Albumin/Globulin Ratio 1.2, Lipase 44, Ethyl Alcohol < 5.0 12/06/20 06:30: PT 17.1 H, INR 1.6 H, APTT 28.3 12/06/20 06:30: WBC 8.4, RBC 1.99 L, Hgb 6.7 L*, Hct 20.2 L, MCV 101.5 H, MCH 33.7 H, MCHC 33.2, RDW 17.2 H, Plt Count 116 L, MPV 12.2 H, Neut # (Auto) 6.5, Lymph # (Auto) 1.3 L, [place] # (Auto) 0.5, Eos # (Auto) 0.0, Baso # (Auto) 0.0, Absolute Nucleated RBC 0.00, Nucleated RBC % 0.0 - Diagnostic Imaging Results Diagnostic Imaging Results: negative: Read independently (Displaced, comminuted intertrochanteric fracture left hip with osteopenia) - Diagnosis Diagnosis: 1. Left hip displaced, comminuted intertrochanteric fracture. 2. Acute gastrointestinal bleed with hypotension and hypobulimia that is being co rrected. 3 acute anemia being corrected with blood products. 4 history of regular alcohol use. 5. Elevated troponin: Possible myocardial injury, stable, no chest pain - Plan Plan: If he can be stabilized, I would recommend open reduction internal fixation with intramedullary mickey and hip screw for his unstable left hip intertrochanteric fracture. He is at obvious increase for morbidity because of his associated medical problems and comorbidities. Outcomes are definitely better if surgery can be performed within the first 48 hours or less following hip fracture. The patient would like to have surgery done here although there is discussion about transferring the patient because of his associated medical problems. He is in agreement to open reduction internal fixation of his left hip fracture if he is not transferred tomorrow and if he remains stable. Problems with fracture healing were discussed including leg length discrepancy and decreased ability to do activities as well as prior to injury. He has potential obvious increased risk associated with myocardial infarction, stroke, pulmonary embolus, bleeding and infection.I have done a teach back and he is in agreement for surgery if felt appropriate here. I discussed with Dr. Yin
[2020-12-06] MEDS: SODIUM CHLORIDE FLUSH 0.9% 10 ML SYRINGE IVP SCH (18:01)
[2020-12-06] MEDS: PANTOPRAZOLE 40 MG VIAL IVP SCH (20:35)
[2020-12-06 23:55] LABS: HCT - HEMATOCRIT 25.4 % (42.0-52.0); HGB - HEMOGLOBIN 8.9 g/dL (14.0-18.0); MEAN CORPUSCULAR HEMOGLOBIN 31.1 pg (27.0-31.0); MEAN CORPUSCULAR VOLUME 88.8 fL (80.0-94.0); MEAN PLATELET VOLUME 11.2 fL (7.4-11.4); RED BLOOD COUNT 2.86 10^6/uL (4.70-6.10); WHITE BLOOD COUNT 6.5 x10^3/uL (4.8-10.8)
[2020-12-07] MEDS: SODIUM CHLORIDE FLUSH 0.9% 10 ML SYRINGE IVP PRN (00:28)
[2020-12-07] MEDS: MORPHINE 2 MG/ML CARPUJECT IVP PRN ×4 (00:28→13:40)
[2020-12-07] MEDS: OCTREOTIDE 500 MCG in SODIUM CHLORIDE 0.9% 100ML 99 ML IV SCH ×2 (02:31→13:15)
[2020-12-07] MEDS: SODIUM CHLORIDE FLUSH 0.9% 10 ML SYRINGE IVP SCH ×2 (04:14→09:15)
[2020-12-07 05:12] LABS: INR 1.6 (0.8-1.2); PT - PROTHROMBIN TIME 16.9 secs (9.9-12.6)
[2020-12-07 05:19] LABS: BASOPHILS % (AUTO) 0.3 %; EOSINOPHILS % (AUTO) 0.3 %; HCT - HEMATOCRIT 23.8 % (42.0-52.0); HGB - HEMOGLOBIN 8.4 g/dL (14.0-18.0); LYMPHOCYTES # (AUTO) 1.6 10^3/uL (1.5-3.5); LYMPHOCYTES % (AUTO) 26.4 %; MEAN CORPUSCULAR HEMOGLOBIN 31.7 pg (27.0-31.0); MEAN CORPUSCULAR HGB CONC 35.3 g/dL (32.0-36.0); MEAN CORPUSCULAR VOLUME 89.8 fL (80.0-94.0); MEAN PLATELET VOLUME 11.2 fL (7.4-11.4); MONOCYTES # (AUTO) 0.5 10^3/uL (0.0-1.0); NEUTROPHILS # (AUTO) 3.9 10^3/uL (1.5-6.6); NEUTROPHILS % (AUTO) 64.7 %; PLT - PLATELET COUNT 83 10^3/uL (130-450); RED BLOOD COUNT 2.65 10^6/uL (4.70-6.10); RED CELL DISTRIBUTION WIDTH 17.6 % (12.0-15.0)
[2020-12-07 05:21] LABS: ALBUMIN 2.7 g/dL (3.2-5.5); BILIRUBIN,DIRECT 1.7 mg/dL (0.1-0.5); BILIRUBIN,TOTAL 4.4 mg/dL (0.2-1.0); CREATININE 0.7 mg/dL (0.6-1.2); PHOSPHORUS 3.4 mg/dL (2.5-4.6); POTASSIUM 4.2 mmol/L (3.5-5.0); TOTAL PROTEIN 4.7 g/dL (6.7-8.2)
[2020-12-07] MEDS: LACTATED RINGERS 1,000 ML IV SCH (06:19)
[2020-12-07] MEDS ORDERED: MULTIVITAMIN 10 ML, THIAMINE INJ 100 MG, FOLIC ACID INJ 1 MG in SODIUM CHLORIDE 0.9% 1,... IV SCH (09:00)
[2020-12-07] MEDS: cefTRIAXone 1 GM in SODIUM CHLORIDE 0.9% MINIBAG 100 ML IV SCH (09:12)
[2020-12-07] MEDS: PANTOPRAZOLE 40 MG VIAL IVP SCH (09:15)
--- NOTE | 2020-12-07 11:14 | DISCHARGE SUMMARY ---
"Discharge Summary Admit Date: 12/06/20 Discharge Date: 12/07/20 Discharging Provider: Logan Parkinson Primary Care Provider: Alma PCP Code Status: Attempt Resuscitation Discharge Disposition: 02 Transfer Acute Care Hosp Discharge [facility] Name: [facility] - DIAGNOSES Admission Diagnoses: Upper GI bleed Acute blood loss anemia Elevated troponin Hip fracture, left Elevated liver enzymes Alcohol abuse Discharge Diagnoses with Status of Each Condition: Upper GI bleed - stable. Acute blood loss anemia - improved. Elevated troponin - stable. Hip fracture, left - ongoing. Elevated liver enzymes - stable. Thrombocytopenia - stable. Alcohol abuse - stable. - HPI History of Present Illness: This is a 65-year-old male with a past medical history significant for COPD and alcohol abuse who presents today after having a fall at home and complaining of left hip pain. He states he got up this morning at around 3:30 AM and when he was walking to the bathroom he fell. He was able to get himself back up but he fell again shortly after he landed on his left hip. He had difficulty getting u p after this and so he came to the emergency department. He denies any syncope or loss of consciousness. He denies any chest pain or difficulty breathing prior to the event. He states he is not on any blood thinners or aspirin. He has not seen a doctor in quite a few years and takes no medications except for Tylenol as needed. He does report being diagnosed with otitis media a few weeks ago for which he was treated with antibiotics. He does tell me that yesterday he had a few episodes of vomiting and diarrhea. His stool was black and tarry and his vomit was quite dark as well. He does drink alcohol on a daily basis. He currently drinks about 18 beers a day and has been doing so since 2011. Prior to that, he had also been drinking at least 5-6 beers a day. He denies any history of alcohol withdrawal or liver disease. He has never had a colonoscopy. He does believe that he had an endoscopy in the past but cannot recall the results of it. In the emergency department, he was found to be afebrile. He was initially tachycardic with heart rate in the 130s. He was hypotensive with systolic in the 80s but this improved to the 100s after resuscitation. He was not tachypneic and was saturating well on room air. Initial labs reveal hemoglobin of 6.7, INR of 1.6, sodium of 130, and a troponin of 485. His EKG did reveal ST depressions in V4 to V6. X-ray of the left hip revealed a fracture. He was given 1 unit of packed red blood cell and transferred to higher level of care was attempted but unfortunately, there are no beds available at any facilities. Given this, he will be admitted here for further medical management. I did discuss goals of care and he would like to be a full code. - CONSULTS | PROCEDURES Consultations: General Surgery, Orthopedic Surgery - HOSPITAL COURSE Hospital Course: The patient was admitted to the intensive care unit for acute blood loss anemia secondary to an upper GI bleed. He was also noted to have an elevated troponin of nearly 500 and a left hip fracture. He was given 1 unit of packed red blood cell without any improvement in his hemoglobin. He was transfuse another 2 units of packed red blood cell and his hemoglobin has improved to 8.9 and this morning it is 8.4. He did have 1 bloody bowel movement yesterday otherwise he has been no further episodes of bleeding and there has been no emesis. He has been maintained on Protonix 40 mg IV twice daily and octreotide infusion. He was also given ceftriaxone given concern for possible cirrhosis and the fact that he has an upper GI bleed. The plan was to do an endoscopy but as he did not feel comfortable sedating him given his elevated troponin. With regards to his elevated troponin, it was initially near 500 and has been trending down and is now 350. His initial EKG did show some ST depressions in V4 to V6 but this was improved after transfusion and slowing down of his heart rate. An echocardiogram was obtained which showed a preserved ejection fraction of 60% without any wall motion abnormalities. It is felt this is likely demand ischemia given the above findings. Nonetheless he could not be anticoagulated given his upper GI bleed. With regards to his left hip fracture, he was seen by orthopedic surgery and plan was for surgical intervention if transfer could not be obtained. Fortunately, he is being transferred to higher level of care and he will need orthopedic surgery consultation for surgical intervention. His pain has been treated with morphine IV as needed. His LFTs were noted to be elevated with a T bili greater than 4. He does have scleral icterus and does appear jaundiced. This is likely related to underlying cirrhosis secondary to his alcohol abuse. He has not shown evidence of withdrawal during this hospitalization. He is thrombocytopenic with a platelet count in the 80s. His INR was 1.6 and he was given vitamin K without improvement in his INR. Given the patient's multiple comorbidities with the upper GI bleed, elevated troponin and the need for surgical intervention for left hip fracture, it was felt that transfer to higher level of care was warranted. I spoke with Dr. Dunne of the hospitalist service at [facility] who graciously accepted the patient to his service. The patient was transferred in stable condition via ALS. - ALLERGIES Allergies/Adverse Reactions: Allergies Allergy/AdvReac Type Severity Reaction Status Date / Time No Known Drug Allergies Allergy Verified 12/06/20 06:12 - MEDICATIONS Home Medications: Ambulatory Orders Medication Instructions Recorded Confirmed No Known Home Medications 06/04/19 12/06/20 - PHYSICAL EXAM AT DISCHARGE General Appearance: positive: No acute distress, Alert Eyes Bilateral: positive: Normal inspection, Other (Scleral icterus.) ENT: positive: ENT inspection nml Neck: positive: Nml inspection Respiratory: positive: No respiratory distress. negative: Wheezes, Rales Cardiovascular: positive: Regular rate & rhythm, No murmur. negative: Tachycardia Abdomen: positive: Non-tender, No distention. negative: Tenderness, Guarding, Rebound Skin: positive: Warm, Dry, Other (Appears jaundiced.) Extremities: positive: No pedal edema, Other (Left lower extremity is externally rotated. He has tenderness over the medial and lateral aspect of the left hip. No erythema. Neurovascularly he is intact.) Neurologic/Psychiatric: negative: Disoriented to person, Disoriented to place Physical Exam Other/Comments: Vital Signs - 8 hr 12/07/20 12/07/20 12/07/20 05:00 06:00 07:00 Temperature Heart Rate Heart Rate [ 72 67 68 Brachial] Respiratory 14 97 H 97 H Rate Blood Pressure 115/69 111/64 131/59 H [Left Brachial artery] O2 Saturation 99 12/07/20 12/07/20 12/07/20 08:00 09:00 09:11 Temperature 37.0 C 37 C Heart Rate 79 Heart Rate [ 79 87 Brachial] Respiratory 16 19 16 Rate Blood Pressure 138/78 H 109/63 [Left Brachial artery] O2 Saturation 98 98 97 12/07/20 12/07/20 12/07/20 10:00 11:00 12:00 Temperature Heart Rate Heart Rate [ 92 69 72 Brachial] Respiratory 22 14 18 Rate Blood Pressure 115/72 132/62 H 134/73 H [Left Brachial artery] O2 Saturation 96 97 100 - LABS Result Diagrams: 12/07/20 04:12 12/07/20 04:12 Other Lab Results: Laboratory Tests 12/06/20 12/06/20 12/06/20 06:30 06:30 06:30 WBC 8.4 RBC 1.99 L Hgb 6.7 L* Hct 20.2 L MCV 101.5 H MCH 33.7 H MCHC 33.2 RDW 17.2 H Plt Count 116 L MPV 12.2 H Neut # (Auto) 6.5 Lymph # (Auto) 1.3 L [place] # (Auto) 0.5 Eos # (Auto) 0.0 Baso # (Auto) 0.0 Absolute Nucleated RBC 0.00 Nucleated RBC % 0.0 PT 17.1 H INR 1.6 H APTT 28.3 Sodium 130 L Potassium 5.3 H Chloride 93 L Carbon Dioxide 19 L Anion Gap 18.0 H BUN 29 H Creatinine 1.0 Estimated GFR (MDRD) 75 L Glucose 131 H POC Whole Bld Glucose Calcium 8.6 Phosphorus Magnesium Total Bilirubin 2.9 H Direct Bilirubin AST 69 H ALT 25 Alkaline Phosphatase 52 Troponin I High Sens Total Protein 5.5 L Albumin 3.0 L Globulin 2.5 Albumin/Globulin Ratio 1.2 Lipase 44 Nasal Adenovirus (PCR) Nasal B. parapertussis DNA (PCR) Nasal Coronavir 229E PCR Nasal Coronavir HKU1 PCR Nasal Coronavir NL63 PCR Nasal Coronavir OC43 PCR Nasal Enterovir/Rhinovir PCR Nasal Influenza B PCR Nasal Influenza A PCR Nasal Parainfluen 1 PCR Nasal Parainfluen 2 PCR Nasal Parainfluen 3 PCR Nasal Parainfluen 4 PCR Nasal RSV (PCR) Nasal Screen MRSA (PCR) Nasal B.pertussis DNA PCR Nasal C.pneumoniae (PCR) Nathan Human Metapneumo PCR Nasal M.pneumoniae (PCR) Nasal SARS-CoV-2 (PCR) Ethyl Alcohol < 5.0 Blood Type Antibody Screen Crossmatch IS Only 12/06/20 12/06/20 12/06/20 06:30 06:30 06:45 WBC RBC Hgb Hct MCV MCH MCHC RDW Plt Count MPV Neut # (Auto) Lymph # (Auto) [place] # (Auto) Eos # (Auto) Baso # (Auto) Absolute Nucleated RBC Nucleated RBC % PT INR APTT Sodium Potassium Chloride Carbon Dioxide Anion Gap BUN Creatinine Estimated GFR (MDRD) Glucose POC Whole Bld Glucose Calcium Phosphorus Magnesium Total Bilirubin Direct Bilirubin AST ALT Alkaline Phosphatase Troponin I High Sens 482.6 H* Total Protein Albumin Globulin Albumin/Globulin Ratio Lipase Nasal Adenovirus (PCR) NOT DETECTED Nasal B. parapertussis DNA (PCR) NOT DETECTED Nasal Coronavir 229E PCR NOT DETECTED Nasal Coronavir HKU1 PCR NOT DETECTED Nasal Coronavir NL63 PCR NOT DETECTED Nasal Coronavir OC43 PCR NOT DETECTED Nasal Enterovir/Rhinovir PCR NOT DETECTED Nasal Influenza B PCR NOT DETECTED Nasal Influenza A PCR NOT DETECTED Nasal Parainfluen 1 PCR NOT DETECTED Nasal Parainfluen 2 PCR NOT DETECTED Nasal Parainfluen 3 PCR NOT DETECTED Nasal Parainfluen 4 PCR NOT DETECTED Nasal RSV (PCR) NOT DETECTED Nasal Screen MRSA (PCR) Nasal B.pertussis DNA PCR NOT DETECTED Nasal C.pneumoniae (PCR) NOT DETECTED Nathan Human Metapneumo PCR NOT DETECTED Nasal M.pneumoniae (PCR) NOT DETECTED Nasal SARS-CoV-2 (PCR) NOT DETECTED Ethyl Alcohol Blood Type AB POSITIVE Antibody Screen NEGATIVE Crossmatch IS Only See Detail 12/06/20 12/06/20 12/06/20 09:51 10:42 10:42 WBC RBC Hgb Hct MCV MCH MCHC RDW Plt Count MPV Neut # (Auto) Lymph # (Auto) [place] # (Auto) Eos # (Auto) Baso # (Auto) Absolute Nucleated RBC Nucleated RBC % PT INR APTT Sodium Potassium Chloride Carbon Dioxide Anion Gap BUN Creatinine Estimated GFR (MDRD) Glucose POC Whole Bld Glucose Calcium Phosphorus 4.2 Magnesium 2.3 Total Bilirubin Direct Bilirubin AST ALT Alkaline Phosphatase Troponin I High Sens 335.6 H* Total Protein Albumin Globulin Albumin/Globulin Ratio Lipase Nasal Adenovirus (PCR) Nasal B. parapertussis DNA (PCR) Nasal Coronavir 229E PCR Nasal Coronavir HKU1 PCR Nasal Coronavir NL63 PCR Nasal Coronavir OC43 PCR Nasal Enterovir/Rhinovir PCR Nasal Influenza B PCR Nasal Influenza A PCR Nasal Parainfluen 1 PCR Nasal Parainfluen 2 PCR Nasal Parainfluen 3 PCR Nasal Parainfluen 4 PCR Nasal RSV (PCR) Nasal Screen MRSA (PCR) Nasal B.pertussis DNA PCR Nasal C.pneumoniae (PCR) Nathan Human Metapneumo PCR Nasal M.pneumoniae (PCR) Nasal SARS-CoV-2 (PCR) Ethyl Alcohol Blood Type Antibody Screen Crossmatch IS Only 12/06/20 12/06/20 12/06/20 11:15 11:52 13:27 WBC RBC Hgb Hct MCV MCH MCHC RDW Plt Count MPV Neut # (Auto) Lymph # (Auto) [place] # (Auto) Eos # (Auto) Baso # (Auto) Absolute Nucleated RBC Nucleated RBC % PT INR APTT Sodium Potassium Chloride Carbon Dioxide Anion Gap BUN Creatinine Estimated GFR (MDRD) Glucose POC Whole Bld Glucose 113 H Calcium Phosphorus Magnesium Total Bilirubin Direct Bilirubin AST ALT Alkaline Phosphatase Troponin I High Sens 417.5 H* Total Protein Albumin Globulin Albumin/Globulin Ratio Lipase Nasal Adenovirus (PCR) Nasal B. parapertussis DNA (PCR) Nasal Coronavir 229E PCR Nasal Coronavir HKU1 PCR Nasal Coronavir NL63 PCR Nasal Coronavir OC43 PCR Nasal Enterovir/Rhinovir PCR Nasal Influenza B PCR Nasal Influenza A PCR Nasal Parainfluen 1 PCR Nasal Parainfluen 2 PCR Nasal Parainfluen 3 PCR Nasal Parainfluen 4 PCR Nasal RSV (PCR) Nasal Screen MRSA (PCR) NEGATIVE Nasal B.pertussis DNA PCR Nasal C.pneumoniae (PCR) Nathan Human Metapneumo PCR Nasal M.pneumoniae (PCR) Nasal SARS-CoV-2 (PCR) Ethyl Alcohol Blood Type Antibody Screen Crossmatch IS Only 12/06/20 12/06/20 12/06/20 13:27 13:27 15:56 WBC RBC Hgb 6.8 L* Hct 20.3 L MCV MCH MCHC RDW Plt Count MPV Neut # (Auto) Lymph # (Auto) [place] # (Auto) Eos # (Auto) Baso # (Auto) Absolute Nucleated RBC Nucleated RBC % PT INR APTT Sodium 133 L Potassium 5.2 H Chloride 99 L Carbon Dioxide 20 L Anion Gap 14.0 H BUN 31 H Creatinine 0.9 Estimated GFR (MDRD) 85 L Glucose 124 H POC Whole Bld Glucose Calcium 8.0 L Phosphorus Magnesium Total Bilirubin Direct Bilirubin AST ALT Alkaline Phosphatase Troponin I High Sens 358.8 H* Total Protein Albumin Globulin Albumin/Globulin Ratio Lipase Nasal Adenovirus (PCR) Nasal B. parapertussis DNA (PCR) Nasal Coronavir 229E PCR Nasal Coronavir HKU1 PCR Nasal Coronavir NL63 PCR Nasal Coronavir OC43 PCR Nasal Enterovir/Rhinovir PCR Nasal Influenza B PCR Nasal Influenza A PCR Nasal Parainfluen 1 PCR Nasal Parainfluen 2 PCR Nasal Parainfluen 3 PCR Nasal Parainfluen 4 PCR Nasal RSV (PCR) Nasal Screen MRSA (PCR) Nasal B.pertussis DNA PCR Nasal C.pneumoniae (PCR) Nathan Human Metapneumo PCR Nasal M.pneumoniae (PCR) Nasal SARS-CoV-2 (PCR) Ethyl Alcohol Blood Type Antibody Screen Crossmatch IS Only 12/06/20 12/06/20 12/06/20 17:41 23:47 23:53 WBC 6.5 RBC 2.86 L Hgb 8.9 L Hct 25.4 L MCV 88.8 MCH 31.1 H MCHC 35.0 RDW 17.0 H Plt Count 77 L MPV 11.2 Neut # (Auto) Lymph # (Auto) [place] # (Auto) Eos # (Auto) Baso # (Auto) Absolute Nucleated RBC Nucleated RBC % PT INR APTT Sodium Potassium Chloride Carbon Dioxide Anion Gap BUN Creatinine Estimated GFR (MDRD) Glucose POC Whole Bld Glucose 133 H 140 H Calcium Phosphorus Magnesium Total Bilirubin Direct Bilirubin AST ALT Alkaline Phosphatase Troponin I High Sens Total Protein Albumin Globulin Albumin/Globulin Ratio Lipase Nasal Adenovirus (PCR) Nasal B. parapertussis DNA (PCR) Nasal Coronavir 229E PCR Nasal Coronavir HKU1 PCR Nasal Coronavir NL63 PCR Nasal Coronavir OC43 PCR Nasal Enterovir/Rhinovir PCR Nasal Influenza B PCR Nasal Influenza A PCR Nasal Parainfluen 1 PCR Nasal Parainfluen 2 PCR Nasal Parainfluen 3 PCR Nasal Parainfluen 4 PCR Nasal RSV (PCR) Nasal Screen MRSA (PCR) Nasal B.pertussis DNA PCR Nasal C.pneumoniae (PCR) Nathan Human Metapneumo PCR Nasal M.pneumoniae (PCR) Nasal SARS-CoV-2 (PCR) Ethyl Alcohol Blood Type Antibody Screen Crossmatch IS Only 12/07/20 12/07/20 12/07/20 04:12 04:12 04:12 WBC 6.0 RBC 2.65 L Hgb 8.4 L Hct 23.8 L MCV 89.8 MCH 31.7 H MCHC 35.3 RDW 17.6 H Plt Count 83 L MPV 11.2 Neut # (Auto) 3.9 Lymph # (Auto) 1.6 [place] # (Auto) 0.5 Eos # (Auto) 0.0 Baso # (Auto) 0.0 Absolute Nucleated RBC 0.00 Nucleated RBC % 0.0 PT 16.9 H INR 1.6 H APTT Sodium 135 Potassium 4.2 Chloride 105 Carbon Dioxide 25 Anion Gap 5.0 L BUN 27 H Creatinine 0.7 Estimated GFR (MDRD) 113 Glucose 139 H POC Whole Bld Glucose Calcium 8.0 L Phosphorus 3.4 Magnesium 2.0 Total Bilirubin 4.4 H Direct Bilirubin 1.7 H AST 79 H ALT 25 Alkaline Phosphatase 43 Troponin I High Sens Total Protein 4.7 L Albumin 2.7 L Globulin 2.0 L Albumin/Globulin Ratio Lipase Nasal Adenovirus (PCR) Nasal B. parapertussis DNA (PCR) Nasal Coronavir 229E PCR Nasal Coronavir HKU1 PCR Nasal Coronavir NL63 PCR Nasal Coronavir OC43 PCR Nasal Enterovir/Rhinovir PCR Nasal Influenza B PCR Nasal Influenza A PCR Nasal Parainfluen 1 PCR Nasal Parainfluen 2 PCR Nasal Parainfluen 3 PCR Nasal Parainfluen 4 PCR Nasal RSV (PCR) Nasal Screen MRSA (PCR) Nasal B.pertussis DNA PCR Nasal C.pneumoniae (PCR) Nathan Human Metapneumo PCR Nasal M.pneumoniae (PCR) Nasal SARS-CoV-2 (PCR) Ethyl Alcohol Blood Type Antibody Screen Crossmatch IS Only 12/07/20 12/07/20 12:15 12:29 WBC RBC Hgb 8.0 L Hct 23.5 L MCV MCH MCHC RDW Plt Count MPV Neut # (Auto) Lymph # (Auto) [place] # (Auto) Eos # (Auto) Baso # (Auto) Absolute Nucleated RBC Nucleated RBC % PT INR APTT Sodium Potassium Chloride Carbon Dioxide Anion Gap BUN Creatinine Estimated GFR (MDRD) Glucose POC Whole Bld Glucose 113 H Calcium Phosphorus Magnesium Total Bilirubin Direct Bilirubin AST ALT Alkaline Phosphatase Troponin I High Sens Total Protein Albumin Globulin Albumin/Globulin Ratio Lipase Nasal Adenovirus (PCR) Nasal B. parapertussis DNA (PCR) Nasal Coronavir 229E PCR Nasal Coronavir HKU1 PCR Nasal Coronavir NL63 PCR Nasal Coronavir OC43 PCR Nasal Enterovir/Rhinovir PCR Nasal Influenza B PCR Nasal Influenza A PCR Nasal Parainfluen 1 PCR Nasal Parainfluen 2 PCR Nasal Parainfluen 3 PCR Nasal Parainfluen 4 PCR Nasal RSV (PCR) Nasal Screen MRSA (PCR) Nasal B.pertussis DNA PCR Nasal C.pneumoniae (PCR) Nathan Human Metapneumo PCR Nasal M.pneumoniae (PCR) Nasal SARS-CoV-2 (PCR) Ethyl Alcohol Blood Type Antibody Screen Crossmatch IS Only - DIAGNOSTIC IMAGING Diagnostic Imaging Results: Final report reviewed - TIME SPENT Time Spent in Discharge (Minutes): 48"
[2020-12-07 12:47] LABS: HCT - HEMATOCRIT 23.5 % (42.0-52.0)
[2020-12-07 14:08] VITALS: BP 126/84
== END 2020-12-07 13:45 | disposition short-term general hospital (02) | DRG 377 ==
LOC: EDUNIT# → ED 05:54 → SUPCPDRO 05:54 → ICU 10:24
PROVIDERS: ADMIT Internal Medicine; ATTEND Internal Medicine
PROC: 30233N1 Transfusion of Nonautologous Red Blood Cells into Peripheral Vein, Percutaneous Approach (ICD-10-PCS; principal; 2020-12-06)
DX: K92.2 Gastrointestinal hemorrhage, unspecified (principal); S72.142A Displaced intertrochanteric fracture of left femur, initial encounter for closed fracture; R57.8 Other shock; K92.1 Melena; Z20.822 Contact with and (suspected) exposure to COVID-19; F17.200 Nicotine dependence, unspecified, uncomplicated; D62 Acute posthemorrhagic anemia; I24.8 Other forms of acute ischemic heart disease; R53.1 Weakness; Y93.9 Activity, unspecified; R74.8 Abnormal levels of other serum enzymes; D69.6 Thrombocytopenia, unspecified; F10.10 Alcohol abuse, uncomplicated; Y92.009 Unspecified place in unspecified non-institutional (private) residence as the place of occurrence of the external cause; W18.30XA Fall on same level, unspecified, initial encounter; J44.9 Chronic obstructive pulmonary disease, unspecified; R00.0 Tachycardia, unspecified; Z87.891 Personal history of nicotine dependence; E86.1 Hypovolemia; K70.30 Alcoholic cirrhosis of liver without ascites
CPT/HCPCS: 36415; 36430; 71045; 73502; 80048; 80053; 80076; 82272; 83690; 83735; 84100; 84484; 85014; 85018; 85025; 85027; 85610; 85730; 86850; 86900; 86901; 86920; 87150; 87631; 93005; 93306; 96365; 96366; 96368; 96375; 96376; 99285; 99291; G0480; J2354; J3411; J7040; J7120; P9016; 0202U; 80320; 82274

== ENCOUNTER 2020-12-07 13:49 | Outpatient (CLI) | payer MEDICARE, OTHER | END 2020-12-07 13:50 | disposition short-term general hospital (02) | LOC: EMS 13:49 | PROVIDERS: ATTEND Internal Medicine | DX: K92.2 Gastrointestinal hemorrhage, unspecified (principal); R74.8 Abnormal levels of other serum enzymes; S72.002A Fracture of unspecified part of neck of left femur, initial encounter for closed fracture; X58.XXXA Exposure to other specified factors, initial encounter | CPT/HCPCS: A0425; A0426 ==

== ENCOUNTER 2022-03-06 16:30 | Outpatient (CLI) | payer OTHER, MEDICARE | END 2022-03-06 16:31 | disposition critical access hospital (66) | LOC: EMS 16:30 | DX: R11.2 Nausea with vomiting, unspecified (principal); R10.11 Right upper quadrant pain | CPT/HCPCS: A0425; A0427 ==

== ENCOUNTER 2022-03-06 16:41 | Emergency (ER) | payer OTHER, MEDICARE ==
--- NOTE | 2022-03-06 16:59 | ED Physician Documentation ---
PD HPI NVD - Stated complaint Stated Complaint: NAUSEA - History obtained from History obtained from: Patient, EMS - History of Present Illness Timing - onset: Today Timing - duration: Days (The patient states he had an onset of nausea and vomiting this morning that is continued through the afternoon. He is feeling abdominal bloating similar to recent visit. No hematemesis. He states he did describe some dark stool.) Timing - details: Gradual onset, Still present Associated symptoms: Abdominal pain (distension and fullness), Loss of appetite. No: Hematemesis, Near syncope / syncope Contributing factors: No: Sick contact, Bad food, Diabetes Improved by: No: Vomiting Worsened by: Eating Similar symptoms before: Has not had sx before Recently seen: Emergency Dept (Recently seen for abdominal and distention with some leg edema. He was not having nausea or vomiting at that time.) Review of Systems Constitutional: denies: Fever, Chills Nose: denies: Rhinorrhea / runny nose, Congestion Throat: denies: Sore throat Respiratory: denies: Cough GI: reports: Abdominal Pain, Abdominal Swelling, Nausea, Vomiting, Bloody / black stool (noted some dark brown stool today. Will do guaiac test.). denies: Diarrhea : denies: Dysuria, Frequency Musculoskeletal: denies: Neck pain, Back pain PD PAST MEDICAL HISTORY - Past Medical History Cardiovascular: None Respiratory: COPD Neuro: None Endocrine/Autoimmune: None GI: Ulcers, Cirrhosis : None Psych: Depression, Anxiety Musculoskeletal: None Derm: None - Past Surgical History Past Surgical History: Yes General: EGD - Present Medications Home Medications: Ambulatory Orders Medication Instructions Recorded Confirmed Furosemide [Lasix] 20 mg PO DAILY #14 tablet 02/16/22 Spironolactone [Aldactone] 25 mg PO DAILY #14 tablet 02/16/22 - Allergies Allergies/Adverse Reactions: Allergies Allergy/AdvReac Type Severity Reaction Status Date / Time No Known Drug Allergies Allergy Verified 03/06/22 17:05 - Social History Does the pt smoke?: Yes Smoking Status: Former smoker Does the pt drink ETOH?: Yes Does the pt have substance abuse?: No - Immunizations Immunizations are current?: No Immunizations: TDAP current <10years PD ED PE NORMAL - Vitals Vital signs reviewed: Yes - General General: Alert and oriented X 3, No acute distress, Well developed/nourished - HEENT HEENT: Pharynx benign - Neck Neck: Supple, no meningeal sign, No adenopathy - Cardiac Cardiac: RRR, No murmur - Respiratory Respiratory: No respiratory distress, Clear bilaterally - Abdomen Abdomen: Other (Abdomen is distended with mild general tenderness but no significant tenderness. No percussion tenderness. Right upper quadrant abdomen is slightly tender.). No: Normal bowel sounds (diminished) - Rectal Rectal: Other (minimal stool in vault. Dark black color. Sent to lab for guauiac testing. ) - Derm Derm: Normal color, Warm and dry - Extremities Extremities: Normal ROM s pain, No calf tenderness / cord, Other (1+ edema in both lower legs up to knees. ) - Neuro Neuro: Alert and oriented X 3, No motor deficit, No sensory deficit, Normal speech Eye Opening: Spontaneous Motor: Obeys Commands Verbal: Oriented GCS Score: 15 Results - Vitals Vitals: Vital Signs - 24 hr 03/06/22 03/06/22 03/06/22 16:45 17:05 19:05 Temperature 36 C L 36.5 C Heart Rate 100 100 98 Heart Rate [ Radial] Respiratory 18 18 16 Rate Blood Pressure 119/64 119/54 L 96/64 Blood Pressure [Left] O2 Saturation 99 99 97 03/06/22 03/06/22 03/06/22 19:44 20:05 20:20 Temperature 36.4 C L 36.5 C 36.6 C Heart Rate Heart Rate [ 94 94 Radial] Respiratory 12 9 L 12 Rate Blood Pressure Blood Pressure 107/62 119/57 L [Left] O2 Saturation 97 96 97 03/06/22 03/06/22 20:50 21:00 Temperature 36.5 C 36.5 C Heart Rate 109 H Heart Rate [ 108 H Radial] Respiratory 23 16 Rate Blood Pressure 128/76 Blood Pressure 108/56 L [Left] O2 Saturation 96 97 Oxygen O2 Source Room air - Labs Labs: Microbiology 03/06/22 18:16 Occult Blood - Final Stool Laboratory Tests 03/06/22 03/06/22 03/06/22 17:51 17:51 18:28 WBC 11.1 H RBC 1.80 L Hgb 6.4 L* Hct 18.3 L* MCV 101.7 H MCH 35.6 H MCHC 35.0 RDW 13.5 Plt Count 115 L MPV 12.1 H Neut # (Auto) 8.0 H Lymph # (Auto) 1.9 [place] # (Auto) 1.0 Eos # (Auto) 0.1 Baso # (Auto) 0.0 Absolute Nucleated RBC 0.00 Nucleated RBC % 0.0 Manual Slide Review Indicated Platelet Estimate DECREASED (<130,000) Platelet Morphology NORMAL APPEARANCE RBC Morph Micro Appear 2+ HYPOCHROMASIA PT INR APTT Sodium 128 L Potassium 4.6 Chloride 94 L Carbon Dioxide 19 L Anion Gap 15.0 H BUN 76 H Creatinine 3.1 H Estimated GFR (MDRD) 20 L Glucose 104 H Calcium 9.2 Magnesium 1.8 Total Bilirubin 4.9 H AST 60 H ALT 36 Alkaline Phosphatase 55 Total Protein 5.2 L Albumin 2.5 L Globulin 2.7 Albumin/Globulin Ratio 0.9 L Lipase 90 H SARS-CoV-2 (PCR) NOT DETECTED Blood Type Antibody Screen Crossmatch IS Only 03/06/22 03/06/22 18:34 18:34 WBC RBC Hgb Hct MCV MCH MCHC RDW Plt Count MPV Neut # (Auto) Lymph # (Auto) [place] # (Auto) Eos # (Auto) Baso # (Auto) Absolute Nucleated RBC Nucleated RBC % Manual Slide Review Platelet Estimate Platelet Morphology RBC Morph Micro Appear PT 21.4 H INR 2.0 H APTT 34.5 H Sodium Potassium Chloride Carbon Dioxide Anion Gap BUN Creatinine Estimated GFR (MDRD) Glucose Calcium Magnesium Total Bilirubin AST ALT Alkaline Phosphatase Total Protein Albumin Globulin Albumin/Globulin Ratio Lipase SARS-CoV-2 (PCR) Blood Type AB POSITIVE Antibody Screen NEGATIVE Crossmatch IS Only See Detail PD MEDICAL DECISION MAKING - ED course Complexity details: reviewed old records (prior visit refers to history of likely varices and prior admission to [facility] for AP/ugib. ), reviewed results (Hgb down at 6.5 from prior level 9.5. Will need transfusion. Stool guaiac is potitive. Concern for varices by history. Given famotidine, protonix, octeotide antiemetic and pain meds. ), re-evaluated patient (he seems comfortable with IV meds. No emesis. ), considered differential (Nausea and vomiting today. Consider gastritis. His abdomen is distended but not tense and no notable tenderness but just mild. Does not seem like SBP. We will check hemoglobin and electrolytes. We will check guaiac of stool. He is going to try to have a bowel movement here so I deferred rectal), d/w patient Departure - Departure Disposition: 02 Transfer Acute Care Hosp Clinical Impression: Acute blood loss anemia, Upper GI bleed, Acute renal failure Nausea and vomiting Qualifiers: Vomiting type: unspecified Qualified Code(s): R11.2 - Nausea with vomiting, unspecified Ascites Qualifiers: Ascites type: due to alcoholic cirrhosis Qualified Code(s): K70.31 - Alcoholic cirrhosis of liver with ascites Alcoholic cirrhosis Qualifiers: Ascites presence: with ascites Qualified Code(s): K70.31 - Alcoholic cirrhosis of liver with ascites Condition: Stable Record reviewed to determine appropriate education?: Yes
[2022-03-06] MEDS ORDERED: DROPERIDOL 5 MG/2 ML VIAL IVP STA (17:01)
[2022-03-06] MEDS ORDERED: FAMOTIDINE 20 MG/2 ML VIAL IVP STA (17:01)
[2022-03-06] MEDS ORDERED: HYDROmorphone 0.5 MG/0.5 ML SYRINGE IVP STA ×2 (17:01→18:24)
[2022-03-06 17:58] LABS: BASOPHILS % (AUTO) 0.2 %; EOSINOPHILS # (AUTO) 0.1 10^3/uL (0.0-0.7); LYMPHOCYTES # (AUTO) 1.9 10^3/uL (1.5-3.5); LYMPHOCYTES % (AUTO) 17.4 %; MEAN CORPUSCULAR HEMOGLOBIN 35.6 pg (27.0-31.0); MEAN CORPUSCULAR VOLUME 101.7 fL (80.0-94.0); MEAN PLATELET VOLUME 12.1 fL (7.4-11.4); NEUTROPHILS % (AUTO) 71.8 %; PLT - PLATELET COUNT 115 10^3/uL (130-450); RED CELL DISTRIBUTION WIDTH 13.5 % (12.0-15.0); WHITE BLOOD COUNT 11.1 x10^3/uL (4.8-10.8)
[2022-03-06 18:01] LABS: HCT - HEMATOCRIT 18.3 % (42.0-52.0); HGB - HEMOGLOBIN 6.4 g/dL (14.0-18.0); SLIDE REVIEW? Indicated
[2022-03-06 18:19] LABS: ALBUMIN 2.5 g/dL (3.2-5.5); ALBUMIN/GLOBULIN RATIO 0.9 (1.0-2.2); BILIRUBIN,TOTAL 4.9 mg/dL (0.2-1.0); CALCIUM 9.2 mg/dL (8.5-10.3); CREATININE 3.1 mg/dL (0.6-1.2); MAGNESIUM 1.8 mg/dL (1.7-2.8); POTASSIUM 4.6 mmol/L (3.5-5.0); TOTAL PROTEIN 5.2 g/dL (6.7-8.2)
[2022-03-06] MEDS ORDERED: OCTREOTIDE 100 MCG/ML VIAL IVP STA (18:20)
[2022-03-06] MEDS ORDERED: OCTREOTIDE 500 MCG in SODIUM CHLORIDE 0.9% 100ML 95 ML IV STA (18:20)
[2022-03-06] MEDS ORDERED: TRANEXAMIC ACID 1,000 MG in SODIUM CHLORIDE 0.9% 100ML 100 ML IV STA (18:21)
[2022-03-06] MEDS ORDERED: PANTOPRAZOLE 40 MG VIAL IVP STA (18:22)
[2022-03-06 18:33] LABS: PLATELET ESTIMATE, MANUAL DECREASED (<130,000) (NORMAL); PLATELET MORPHOLOGY NORMAL APPEARANCE (NORMAL)
[2022-03-06 18:45] LABS: PT - PROTHROMBIN TIME 21.4 secs (9.9-12.6)
[2022-03-06] MEDS ORDERED: cefTRIAXone 1 GM VIAL IVP STA (18:45)
[2022-03-06 18:53] LABS: PARTIAL THROMBOPLASTIN TIME 34.5 secs (24.9-33.3)
[2022-03-06] MEDS ORDERED: SODIUM CHLORIDE 0.9% 1,000 ML IV STA (19:03)
[2022-03-06] MEDS ORDERED: SODIUM CHLORIDE 0.9% 500 ML IV STA (19:03)
[2022-03-06] MEDS ORDERED: TRANEXAMIC ACID 1,000 MG/10 ML VIAL ONE (19:29)
[2022-03-06] MEDS ORDERED: OCTREOTIDE 100 MCG/ML VIAL ONE ×2 (19:29→19:39)
--- NOTE | 2022-03-06 19:51 | ED Physician Documentation ---
ED Addendum - Addendum Addendum: 1950 Patient is a 66-year-old male signed out to me by Dr. Mace. Patient is a very ill alcoholic cirrhotic patient with acute GI bleeding. No hematemesis. Tachycardic and hypotensive. Given IV fluids. Given 2 units of PRBCs and FFP. Started on an octreotide drip. Given Protonix. Given Rocephin. Given tranexamic acid. This hospital is not equipped to deal with esophageal varices. We contacted [facility] in [place], [facility] in [place], [facility], [facility], [place], [place], [facility], [facility]. There are no ICU beds available anywhere in the region. We have reached out to [place] as well as [facility] searching for a bed. 03/06/22 20:28 Discussed the case with Ja Espinal, Dr. Malcolm Chaavrria who will also continue searching for a bed for this patient. 03/06/22 23:34 Patient is still awaiting bed placement at the time of signout. He is still receiving his packed red blood cells as well as FFP. He is still on the octreotide drip. Patient signed out to Dr. Bartlett for further care. Departure - Departure Disposition: 02 Transfer Acute Care Hosp Clinical Impression: Acute blood loss anemia, Upper GI bleed Nausea and vomiting Qualifiers: Vomiting type: unspecified Qualified Code(s): R11.2 - Nausea with vomiting, unspecified Ascites Qualifiers: Ascites type: due to alcoholic cirrhosis Qualified Code(s): K70.31 - Alcoholic cirrhosis of liver with ascites Alcoholic cirrhosis Qualifiers: Ascites presence: with ascites Qualified Code(s): K70.31 - Alcoholic cirrhosis of liver with ascites Acute renal failure Qualifiers: Acute renal failure type: unspecified Qualified Code(s): N17.9 - Acute kidney failure, unspecified Condition: Stable
[2022-03-06] MEDS ORDERED: METOCLOPRAMIDE 10 MG/2 ML VIAL IVP STA (20:25)
[2022-03-07 02:56] LABS: HCT - HEMATOCRIT 25.5 % (42.0-52.0); HGB - HEMOGLOBIN 9.3 g/dL (14.0-18.0)
[2022-03-07] MEDS ORDERED: OCTREOTIDE 500 MCG in SODIUM CHLORIDE 0.9% 100ML 95 ML IV STA ×2 (04:01→22:34)
[2022-03-07 06:53] LABS: BASOPHILS # (AUTO) 0.1 10^3/uL (0.0-0.1); BASOPHILS % (AUTO) 0.6 %; EOSINOPHILS # (AUTO) 0.5 10^3/uL (0.0-0.7); HGB - HEMOGLOBIN 8.7 g/dL (14.0-18.0); LYMPHOCYTES # (AUTO) 1.9 10^3/uL (1.5-3.5); LYMPHOCYTES % (AUTO) 20.5 %; MEAN CORPUSCULAR HEMOGLOBIN 33.7 pg (27.0-31.0); MEAN CORPUSCULAR HGB CONC 36.3 g/dL (32.0-36.0); MEAN PLATELET VOLUME 11.7 fL (7.4-11.4); MONOCYTES % (AUTO) 10.9 %; NEUTROPHILS # (AUTO) 5.7 10^3/uL (1.5-6.6); NEUTROPHILS % (AUTO) 62.8 %; PLT - PLATELET COUNT 93 10^3/uL (130-450); RED BLOOD COUNT 2.58 10^6/uL (4.70-6.10); RED CELL DISTRIBUTION WIDTH 17.8 % (12.0-15.0); WHITE BLOOD COUNT 9.1 x10^3/uL (4.8-10.8)
[2022-03-07 07:03] LABS: ALBUMIN 2.8 g/dL (3.2-5.5); ALBUMIN/GLOBULIN RATIO 1.1 (1.0-2.2); BILIRUBIN,TOTAL 9.5 mg/dL (0.2-1.0); CALCIUM 9.2 mg/dL (8.5-10.3); POTASSIUM 4.6 mmol/L (3.5-5.0); TOTAL PROTEIN 5.4 g/dL (6.7-8.2)
[2022-03-07] MEDS ORDERED: PANTOPRAZOLE 40 MG VIAL IVP STA (07:10)
[2022-03-07] MEDS ORDERED: LACTATED RINGERS 1,000 ML IV STA (13:05)
[2022-03-07 13:47] LABS: HCT - HEMATOCRIT 24.1 % (42.0-52.0); HGB - HEMOGLOBIN 8.5 g/dL (14.0-18.0)
[2022-03-07 13:56] LABS: ALBUMIN 2.8 g/dL (3.2-5.5); BILIRUBIN,TOTAL 9.7 mg/dL (0.2-1.0); CALCIUM 9.2 mg/dL (8.5-10.3); POTASSIUM 4.6 mmol/L (3.5-5.0); TOTAL PROTEIN 5.6 g/dL (6.7-8.2)
[2022-03-07 20:05] LABS: BASOPHILS % (AUTO) 0.5 %; EOSINOPHILS # (AUTO) 0.5 10^3/uL (0.0-0.7); EOSINOPHILS % (AUTO) 5.9 %; HCT - HEMATOCRIT 25.5 % (42.0-52.0); HGB - HEMOGLOBIN 8.9 g/dL (14.0-18.0); LYMPHOCYTES # (AUTO) 1.7 10^3/uL (1.5-3.5); MEAN CORPUSCULAR HEMOGLOBIN 33.7 pg (27.0-31.0); MEAN CORPUSCULAR HGB CONC 34.9 g/dL (32.0-36.0); MEAN CORPUSCULAR VOLUME 96.6 fL (80.0-94.0); MEAN PLATELET VOLUME 12.2 fL (7.4-11.4); MONOCYTES # (AUTO) 0.8 10^3/uL (0.0-1.0); MONOCYTES % (AUTO) 10.3 %; NEUTROPHILS # (AUTO) 4.9 10^3/uL (1.5-6.6); NEUTROPHILS % (AUTO) 61.9 %; PLT - PLATELET COUNT 90 10^3/uL (130-450); RED BLOOD COUNT 2.64 10^6/uL (4.70-6.10); RED CELL DISTRIBUTION WIDTH 18.5 % (12.0-15.0); WHITE BLOOD COUNT 7.9 x10^3/uL (4.8-10.8)
[2022-03-07 20:18] LABS: ALBUMIN 2.7 g/dL (3.2-5.5); ALBUMIN/GLOBULIN RATIO 0.9 (1.0-2.2); BILIRUBIN,TOTAL 8.6 mg/dL (0.2-1.0); CALCIUM 9.2 mg/dL (8.5-10.3); CREATININE 2.8 mg/dL (0.6-1.2); POTASSIUM 4.4 mmol/L (3.5-5.0); TOTAL PROTEIN 5.8 g/dL (6.7-8.2)
[2022-03-07] MEDS ORDERED: cefTRIAXone 1 GM VIAL IVP STA (20:37)
--- NOTE | 2022-03-07 21:05 | ED Physician Documentation ---
ED Addendum - Addendum Addendum: 03/07/22 21:00The patient is stable today. Still no accepting facilities. BP has been normotensive. Remains on octreotide 2nd of 5 days. Getting Protonix, Rocephin daily. He did not have any particular complaints this morning. He states small loose BM amount overnight that is still dark. Awake and alert. Abdomen is similarly distended to yesterday. Mild general tenderness. No percussion tenderness. Labs show just small decline in Hgb. Stable RETA and elevated bilirubin (slightly up). Assessment: Upper GI bleed, concerning for varices versus ulcer acute renal insufficiency Liver failure/cirrhosis Plan: [facility] contacted us to see if any accepting yet. [facility] also contacted and are looking for sites. Patient is stable and so he can be accepted to step- down or possibly just med/surg rather than needing ICU. This will hopefully open beds sooner. Continue current med regimen. Will get ERpanel and CBC this evening and in AM.
[2022-03-07] MEDS ORDERED: SODIUM CHLORIDE 0.9% 1,000 ML IV STA (21:26)
--- NOTE | 2022-03-08 06:09 | ED Physician Documentation ---
ED Addendum - Addendum Addendum: 03/08/22 06:06 Informed by ED RN that patient's peripheral access failed. Apparently, peripheral access has been challenging , requiring multiple attempts and ultrasound guidance. I consented patient for central venous access ; see procedure note. ANE CentralLine/PICC Placement Line Preparation: Consent Obtained, Time out completed, Ultrasound used, Sterile prep and drape Line location: Right IJ Line type: Triple lumen Line catheter tip site resides: Superior vena cava (SVC) Line aftercare: Chlorhexidine disc placed, Secured, Placement confirmed, No pneumothorax, No complications, Pt tolerated well
[2022-03-08 06:23] LABS: BASOPHILS % (AUTO) 0.2 %; EOSINOPHILS # (AUTO) 0.6 10^3/uL (0.0-0.7); EOSINOPHILS % (AUTO) 6.5 %; HCT - HEMATOCRIT 22.7 % (42.0-52.0); HGB - HEMOGLOBIN 8.2 g/dL (14.0-18.0); LYMPHOCYTES # (AUTO) 1.4 10^3/uL (1.5-3.5); MEAN CORPUSCULAR HEMOGLOBIN 34.2 pg (27.0-31.0); MEAN CORPUSCULAR HGB CONC 36.1 g/dL (32.0-36.0); MEAN CORPUSCULAR VOLUME 94.6 fL (80.0-94.0); MEAN PLATELET VOLUME 11.9 fL (7.4-11.4); MONOCYTES # (AUTO) 1.1 10^3/uL (0.0-1.0); MONOCYTES % (AUTO) 12.9 %; NEUTROPHILS # (AUTO) 5.5 10^3/uL (1.5-6.6); NEUTROPHILS % (AUTO) 63.8 %; PLT - PLATELET COUNT 91 10^3/uL (130-450); RED CELL DISTRIBUTION WIDTH 17.9 % (12.0-15.0); WHITE BLOOD COUNT 8.6 x10^3/uL (4.8-10.8)
[2022-03-08 06:36] LABS: ALBUMIN 2.7 g/dL (3.2-5.5); BILIRUBIN,TOTAL 6.8 mg/dL (0.2-1.0); CALCIUM 8.7 mg/dL (8.5-10.3); CREATININE 2.6 mg/dL (0.6-1.2); TOTAL PROTEIN 5.5 g/dL (6.7-8.2)
--- NOTE | 2022-03-08 08:41 | XRAY Report ---
PROCEDURE: Chest for Line Placement INDICATIONS: Line Placement TECHNIQUE: One view of the chest was acquired. COMPARISON: 12/06/2020 FINDINGS: Surgical changes and devices: Right internal jugular central venous catheter tip is in lower SVC/rig ht atrium. Lungs and pleura: No pleural effusions or pneumothorax. Lungs are clear. Mediastinum: Mediastinal contours appear normal. Heart size is normal. Bones and chest wall: No suspicious bony lesions. Overlying soft tissues appear unremarkable. IMPRESSION: Right internal jugular central venous catheter tip is in lower SVC/right atrium. No focal infiltrate, pleural effusion or pneumothorax. Reviewed by: Alonzo Lewis MD on 03/08/2022 8:40 AM PDT Approved by: Alonzo Lewis MD on 03/08/2022 8:40 AM PDT Station ID: [id number]
[2022-03-08] MEDS ORDERED: SODIUM CHLORIDE 0.9% 1,000 ML IV STA (10:33)
[2022-03-08] MEDS ORDERED: OCTREOTIDE 500 MCG in SODIUM CHLORIDE 0.9% 100ML 95 ML IV STA (11:02)
[2022-03-08] MEDS ORDERED: OCTREOTIDE 500 MCG in SODIUM CHLORIDE 0.9% 100ML 99 ML IV ONE (12:00)
--- NOTE | 2022-03-08 16:16 | ED Physician Documentation ---
ED Addendum - Addendum Addendum: 03/08/22 16:04 The patient was signed out to me at change of shift, pending acceptance at an outside facility after being found to have a GI bleed with severe anemia on arrival in the ED and also, acute renal failure. The patient has been treated with both boluses and maintenance rate IV fluids, transfusion of 2 units of packed red blood cells, and transfusion of FFP after INR was found to be 2.0. The patient has had hemoglobins serially that have been slowly trending down, but still acceptable at 8.2 for the most recent 1. The patient had a central line placed last night, due to difficult peripheral access. Patient has been without complaints today. He states he is feeling better than the last time he came in for the same kind of symptoms. I ultimately spoke with Dr. Otero who is the hospitalist ship construction teacher at [facility] and he did agree to accept the patient for transfer. The patient is agreeable to this plan. Final impression: 1. Upper GI bleed 2. Severe anemia with hemorrhagic shock 3. Acute renal failure 4. Alcoholic cirrhosis and liver failure Disposition: Transfer to acute care hospital in serious condition.
[2022-03-08 16:47] VITALS: BP 125/83
== END 2022-03-08 17:08 | disposition short-term general hospital (02) ==
LOC: EDUNIT# → ED 16:41
DX: K70.31 Alcoholic cirrhosis of liver with ascites (principal); K92.2 Gastrointestinal hemorrhage, unspecified; N18.6 End stage renal disease; D63.1 Anemia in chronic kidney disease; Z87.891 Personal history of nicotine dependence; Z20.822 Contact with and (suspected) exposure to COVID-19
CPT/HCPCS: 36415; 36430; 36556; 80053; 82272; 83690; 83735; 85014; 85018; 85025; 85610; 85730; 86850; 86900; 86901; 86920; 87635; 93005; 96365; 96366; 96367; 96375; 96376; 99284; 99285; J1170; J2354; J2765; J7120; P9016; P9017

== ENCOUNTER 2022-03-25 07:24 | Emergency (ER) | payer OTHER, MEDICARE ==
[2022-03-25 08:13] LABS: BASOPHILS # (AUTO) 0.1 10^3/uL (0.0-0.1); BASOPHILS % (AUTO) 1.2 %; EOSINOPHILS # (AUTO) 0.5 10^3/uL (0.0-0.7); EOSINOPHILS % (AUTO) 9.3 %; LYMPHOCYTES # (AUTO) 1.2 10^3/uL (1.5-3.5); LYMPHOCYTES % (AUTO) 25.7 %; MEAN CORPUSCULAR HEMOGLOBIN 33.7 pg (27.0-31.0); MEAN CORPUSCULAR HGB CONC 34.6 g/dL (32.0-36.0); MEAN CORPUSCULAR VOLUME 97.4 fL (80.0-94.0); MEAN PLATELET VOLUME 12.2 fL (7.4-11.4); MONOCYTES # (AUTO) 0.6 10^3/uL (0.0-1.0); MONOCYTES % (AUTO) 11.8 %; NEUTROPHILS # (AUTO) 2.5 10^3/uL (1.5-6.6); NEUTROPHILS % (AUTO) 51.8 %; PLT - PLATELET COUNT 89 10^3/uL (130-450); RED BLOOD COUNT 2.67 10^6/uL (4.70-6.10); RED CELL DISTRIBUTION WIDTH 15.6 % (12.0-15.0); WHITE BLOOD COUNT 4.8 x10^3/uL (4.8-10.8)
[2022-03-25 08:20] LABS: INR 1.6 (0.8-1.2); PT - PROTHROMBIN TIME 17.2 secs (9.9-12.6)
[2022-03-25 08:25] LABS: ALBUMIN 3.7 g/dL (3.2-5.5); ALBUMIN/GLOBULIN RATIO 1.4 (1.0-2.2); BILIRUBIN,TOTAL 3.9 mg/dL (0.2-1.0); CALCIUM 9.5 mg/dL (8.5-10.3); CREATININE 1.7 mg/dL (0.6-1.2); POTASSIUM 4.1 mmol/L (3.5-5.0); TOTAL PROTEIN 6.4 g/dL (6.7-8.2)
[2022-03-25] MEDS ORDERED: TRANEXAMIC ACID 1,000 MG/10 ML VIAL NAS STA (10:47)
[2022-03-25] MEDS ORDERED: LIDOCAINE 1%-EPI 1:100000 20 ML MDV SUBQ STA (10:47)
--- NOTE | 2022-03-25 11:06 | ED Physician Documentation ---
History of Present Illness - Stated complaint Stated Complaint: GI PX - Chief complaint Chief Complaint: Abd Pain - History obtained from History obtained from: Patient - History of Present Illness Timing: Today Pain level max: 0 Pain level now: 0 - Additonal information Additional information: Patient is a 66-year-old male who states he had a hemorrhoid that started bleeding this morning and has been unable to get it to stop at home. Nothing makes it better or worse. Not having any pain. No shortness of breath. He was recently hospitalized at [facility] for an esophageal varices bleed. He states that they performed a banding at that time. Review of Systems Constitutional: denies: Fever, Chills Nose: denies: Rhinorrhea / runny nose Cardiac: denies: Chest pain / pressure, Palpitations Respiratory: denies: Cough Skin: denies: Rash Musculoskeletal: denies: Neck pain, Back pain Neurologic: denies: Headache PD PAST MEDICAL HISTORY - Past Medical History Past Medical History: Yes Cardiovascular: None Respiratory: COPD Neuro: None Endocrine/Autoimmune: None GI: Ulcers, Cirrhosis : None Psych: Depression, Anxiety Musculoskeletal: None Derm: None - Past Surgical History Past Surgical History: Yes General: EGD - Present Medications Home Medications: Ambulatory Orders Medication Instructions Recorded Confirmed Furosemide [Lasix] 20 mg PO DAILY #14 tablet 02/16/22 03/08/22 Spironolactone [Aldactone] 25 mg PO DAILY #14 tablet 02/16/22 03/08/22 - Allergies Allergies/Adverse Reactions: Allergies Allergy/AdvReac Type Severity Reaction Status Date / Time No Known Drug Allergies Allergy Verified 03/25/22 07:30 - Social History Does the pt smoke?: Yes Smoking Status: Current every day smoker Does the pt drink ETOH?: Yes Does the pt have substance abuse?: No - Immunizations Immunizations are current?: No Immunizations: TDAP current <10years PD ED PE NORMAL - Vitals Vital signs reviewed: Yes - General General: Alert and oriented X 3, No acute distress - HEENT HEENT: Moist mucous membranes - Neck Neck: Supple, no meningeal sign - Cardiac Cardiac: RRR - Respiratory Respiratory: No respiratory distress, Clear bilaterally - Abdomen Abdomen: Soft, Non tender, Non distended - Rectal Rectal: Other (Inflamed, actively bleeding hemorrhoid.) - Derm Derm: Warm and dry Results - Vitals Vitals: Vital Signs - 24 hr 03/25/22 03/25/22 03/25/22 07:27 10:59 12:00 Temperature 36.9 C 36.9 C Heart Rate 115 H 94 90 Respiratory 16 23 18 Rate Blood Pressure 124/75 135/79 H 130/80 O2 Saturation 100 100 100 Oxygen O2 Source Room air - Labs Labs: Laboratory Tests 03/25/22 03/25/22 03/25/22 08:00 08:00 08:00 WBC 4.8 RBC 2.67 L Hgb 9.0 L Hct 26.0 L MCV 97.4 H MCH 33.7 H MCHC 34.6 RDW 15.6 H Plt Count 89 L MPV 12.2 H Neut # (Auto) 2.5 Lymph # (Auto) 1.2 L [place] # (Auto) 0.6 Eos # (Auto) 0.5 Baso # (Auto) 0.1 Absolute Nucleated RBC 0.00 Nucleated RBC % 0.0 PT 17.2 H INR 1.6 H Sodium 133 L Potassium 4.1 Chloride 101 Carbon Dioxide 21 Anion Gap 11.0 BUN 22 H Creatinine 1.7 H Estimated GFR (MDRD) 41 L Glucose 117 H Calcium 9.5 Total Bilirubin 3.9 H AST 73 H ALT 38 Alkaline Phosphatase 82 Total Protein 6.4 L Albumin 3.7 Globulin 2.7 Albumin/Globulin Ratio 1.4 Lipase 93 H PD MEDICAL DECISION MAKING - ED course Complexity details: reviewed results, considered differential, d/w patient ED course: The actively bleeding hemorrhoid was injected with lidocaine with epinephrine, TXA soaked gauze was then placed over the area of bleeding. The bleeding stopped. Silver nitrate was then used to cauterize the area. There is no evidence of thrombosis. We will have the patient follow-up with his doctor for further care. Patient counseled regarding signs and symptoms for which I believe and urgent re-evaluation would be necessary. Patient with good understanding of and agreement to plan and is comfortable going home at this time This document was made in part using voice recognition software. While efforts are made to proofread this document, sound alike and grammatical errors may occur. Departure - Departure Disposition: 01 Home, Self Care Clinical Impression: Bleeding hemorrhoid Condition: Good Instructions: ED Hemorrhoids Follow-Up: MARLINE WALL PA [Primary Care Provider] - Within 1 week [facility] [Provider Group] Comments: Please follow-up with your doctor for further care. Please try to avoid straining on the toilet. Please return if you worsen.
[2022-03-25] MEDS ORDERED: SILVER NITRATE APPLICATOR TOP STA (11:15)
[2022-03-25 12:25] VITALS: BP 130/80
== END 2022-03-25 12:50 | disposition home or self-care (01) ==
LOC: EDUNIT# → ED 07:24
DX: K64.9 Unspecified hemorrhoids (principal); F17.200 Nicotine dependence, unspecified, uncomplicated
CPT/HCPCS: 36415; 46999; 80053; 83690; 85025; 85610; 99282; 99283

== ENCOUNTER → 2022-03-25 | Outpatient (CLI) | payer OTHER, MEDICARE | END | disposition critical access hospital (66) | LOC: EMS 07:13 | DX: K62.5 Hemorrhage of anus and rectum (principal) | CPT/HCPCS: A0425; A0429 ==

== ENCOUNTER 2022-08-15 10:48 | Outpatient (CLI) | payer MEDICARE, OTHER ==
--- NOTE | 2022-08-16 11:07 | Mammography Report ---
MALE BILATERAL DIGITAL DIAGNOSTIC MAMMOGRAM 3D/2D: 08/15/2022 CLINICAL: Bilateral retroareolar pain. No prior exams were available for comparison. There is gynecomastia in both breasts that correlates with the regions of clinical concern. No significant masses, calcifications, or other findings are seen in either breast. IMPRESSION: BENIGN There is no mammographic evidence of malignancy. Bilateral gynecomastia. Clinical follow up recommen ded. This exam was interpreted at Station ID: [id number]. NOTE: For mammograms, a report in lay terms will be sent to the patient. Approximately 15% of breast malignancies will not be visualized mammographically. In the management of a palpable breast mass, a negative mammogram must not discourage biopsy of a clinically suspicious lesion. Electronically Signed By: Rebeca Marshall M.D. lk/:08/15/2022 11:46:49 ACR BI-RADS Category 2: Benign Finding(s) 3342F PARENCHYMAL PATTERN: (F) - The breast(s) demonstrate(s) diffuse fatty replacement. BI-RADS CATEGORY: (2) - 2 Unspecified - other recall n/a LATERALITY: (B)
== END 2022-08-15 10:49 | disposition home or self-care (01) ==
LOC: DI 10:48
PROVIDERS: ATTEND Physician Assistant
DX: N64.4 Mastodynia (principal); N62 Hypertrophy of breast

== ENCOUNTER 2022-09-06 13:07 | Outpatient (CLI) | payer MEDICARE, OTHER ==
--- NOTE | 2022-09-06 18:52 | Ultrasound Report ---
PROCEDURE: Abdomen Complete INDICATIONS: ALCOHOLIC CIRRHOSIS TECHNIQUE: Real-time scanning was performed of the abdominal and retroperitoneal organs, with image documentatio n. COMPARISON: 02/16/2022. FINDINGS: Liver: The liver has a coarsened echo pattern and some surface nodularity consistent with cirrhotic c hange. No suspicious masses. Benign cysts are noted within the liver. Gallbladder: There are multiple stones present in the gallbladder. No gallbladder wall thickening or fluid around the gallbladder or pain on examination. Biliary ducts: Intrahepatic bile ducts are non-dilated. Extrahepatic bile duct caliber measures 5.7 mm. Normal is 6-7 mm or less in diameter, or 10 mm or less post-cholecystectomy. Pancreas: Not visualized secondary to overlying bowel gas. Spleen: Spleen is normal in size and homogeneous in echotexture. Kidneys: Kidneys are normal in size and echotexture. Right kidney measures 11.3 cm long; left kidne y measures 11.8 cm long. No hydronephrosis or nephrolithiasis. No solid masses. Aorta: Visualized aorta is normal in caliber at less than 3 cm. Iliacs: Proximal common iliac arteries are normal in caliber at less than 2.5 cm. IVC: Intrahepatic inferior vena cava is patent. Miscellaneous: No free abdominal fluid. IMPRESSION: 1. Findings consistent with cirrhosis. No hepatoma noted. 2. Cholelithiasis. Reviewed by: Bharat Perales MD on 09/06/2022 6:51 PM PST Approved by: Bharat Perales MD on 09/06/2022 6:51 PM PST Station ID: [id number]
== END 2022-09-06 13:08 | disposition home or self-care (01) ==
LOC: DI 13:07
PROVIDERS: ATTEND Internal Medicine Gastroenterology
DX: K70.30 Alcoholic cirrhosis of liver without ascites (principal); K80.20 Calculus of gallbladder without cholecystitis without obstruction

== ENCOUNTER 2022-10-16 19:43 | Outpatient (CLI) | payer OTHER, MEDICARE | END 2022-10-16 19:44 | disposition critical access hospital (66) | LOC: EMS 19:43 | DX: R11.2 Nausea with vomiting, unspecified (principal); R19.7 Diarrhea, unspecified; R06.09 Other forms of dyspnea; R42 Dizziness and giddiness; R00.0 Tachycardia, unspecified | CPT/HCPCS: A0425; A0429 ==

== ENCOUNTER 2022-10-16 19:54 | Emergency (ER) | payer OTHER, MEDICARE ==
[2022-10-16] MEDS ORDERED: SODIUM CHLORIDE 0.9% 1,000 ML IV STA (20:09)
[2022-10-16] MEDS ORDERED: ONDANSETRON 4 MG/2 ML VIAL IVP STA (20:10)
--- NOTE | 2022-10-16 20:19 | ED Physician Documentation ---
History of Present Illness - Stated complaint Stated Complaint: N/V/D - Additonal information Additional information: 67-year-old male who has a history of cirrhosis presents to the emergency department for 1 week of feeling generally unwell. States that 7 days ago he had nausea, vomiting and diarrhea for 1 day. denies hemataemesis. No hematochezia but states he did have dark stools. No vomiting or diarrhea since but ever since then he has had some anorexia and when he does attempt to eat he gets nauseated and feel as though food gets stuck in his throat and he has epigastric upset. Patient has a history of alcoholic cirrhosis. He has been sober for 10 months. He is followed by gastroenterology through [place]. Currently he is taking Lasix and spironolactone daily. Denies missing any doses. In review of care everywhere records patient had an EGD completed in November 2020 which showed grade 1 esophageal varices. Pt reports that he was told to stop his protonix some time ago. because he can not take tylenol due to aspirin, he was started on meloxicam for pain, but states he takes that only occassionally Patient denies chest pain or shortness of air. He denies abdominal pain. States he has had chills and myalgias though no fevers. He appears well at the time of exam here in the ER Review of Systems Constitutional: denies: Fever, Chills Cardiac: reports: Reviewed and negative Respiratory: reports: Reviewed and negative GI: reports: Nausea. denies: Abdominal Pain, Vomiting, Diarrhea : reports: Reviewed and negative Skin: reports: Reviewed and negative Musculoskeletal: reports: Reviewed and negative PD PAST MEDICAL HISTORY - Past Medical History Cardiovascular: None Respiratory: COPD Neuro: None Endocrine/Autoimmune: None GI: Ulcers, Cirrhosis : None Psych: Depression, Anxiety Musculoskeletal: None Derm: None - Past Surgical History Past Surgical History: Yes General: EGD - Present Medications Home Medications: Ambulatory Orders Medication Instructions Recorded Confirmed Furosemide [Lasix] 20 mg PO DAILY #14 tablet 02/16/22 10/16/22 Spironolactone [Aldactone] 25 mg PO DAILY #14 tablet 02/16/22 10/16/22 Meloxicam [Mobic] 7.5 mg PO DAILY 10/16/22 10/16/22 Ondansetron Odt [Zofran] 4 mg TL Q6H PRN #10 tablet 10/16/22 Pantoprazole Sodium [Protonix] 40 mg PO DAILY #30 tab 10/16/22 - Allergies Allergies/Adverse Reactions: Allergies Allergy/AdvReac Type Severity Reaction Status Date / Time No Known Drug Allergies Allergy Verified 10/16/22 20:16 - Social History Does the pt smoke?: Yes Smoking Status: Current every day smoker Does the pt drink ETOH?: Yes Does the pt have substance abuse?: No - Immunizations Immunizations are current?: No Immunizations: TDAP current <10years PD ED PE NORMAL - General General: Alert and oriented X 3, No acute distress, Well developed/nourished - HEENT HEENT: Atraumatic, Moist mucous membranes - Neck Neck: Supple, no meningeal sign, No adenopathy - Cardiac Cardiac: RRR, No murmur - Respiratory Respiratory: No respiratory distress, Clear bilaterally - Abdomen Abdomen: Normal bowel sounds, Soft, Non tender (Was unable to elicit any abdominal tenderness on my exam. No ascites is present.) - Back Back: No CVA TTP - Derm Derm: Normal color, Warm and dry, Other (No jaundice noted, No scleral icterus) - Extremities Extremities: No deformity - Neuro Neuro: Alert and oriented X 3, patient access representative 2-12 intact Eye Opening: Spontaneous Motor: Obeys Commands Verbal: Oriented GCS Score: 15 Results - Vitals Vitals: Vital Signs - 24 hr 10/16/22 10/16/22 10/16/22 20:12 20:54 22:23 Temperature 36.8 C 37.0 C Heart Rate 85 79 Heart Rate [ 78 Monitoring electrodes] Respiratory 17 14 18 Rate Blood Pressure 141/73 H 126/70 Blood Pressure 139/65 H [Left Brachial artery] O2 Saturation 100 100 100 10/16/22 22:43 Temperature 36.9 C Heart Rate Heart Rate [ 79 Monitoring electrodes] Respiratory 16 Rate Blood Pressure Blood Pressure 129/65 [Left Brachial artery] O2 Saturation 100 Oxygen O2 Source Room air - Labs Labs: Laboratory Tests 10/16/22 10/16/22 10/16/22 20:36 20:36 20:36 WBC 8.7 RBC 2.26 L Hgb 6.8 L* Hct 21.1 L MCV 93.4 MCH 30.1 MCHC 32.2 RDW 16.3 H Plt Count 86 L MPV 11.9 H Neut # (Auto) 5.8 Lymph # (Auto) 1.8 [place] # (Auto) 0.9 Eos # (Auto) 0.2 Baso # (Auto) 0.0 Absolute Nucleated RBC 0.00 Nucleated RBC % 0.0 Manual Slide Review Indicated Platelet Estimate DECREASED (<130,000) Platelet Morphology NORMAL APPEARANCE RBC Morph Micro Appear 2+ HYPOCHROMASIA PT INR Sodium 127 L Potassium 2.9 L Chloride 92 L Carbon Dioxide 22 Anion Gap 13.0 BUN 26 H Creatinine 1.0 Estimated GFR (MDRD) 75 L Glucose 123 H Calcium 8.4 L Magnesium Total Bilirubin 2.7 H AST 44 H ALT 27 Alkaline Phosphatase 56 Ammonia 45.0 H Total Protein 5.7 L Albumin 3.5 Globulin 2.2 Albumin/Globulin Ratio 1.6 Lipase 81 H Blood Type Antibody Screen Crossmatch IS Only 10/16/22 10/16/22 10/16/22 20:36 21:18 21:18 WBC RBC Hgb Hct MCV MCH MCHC RDW Plt Count MPV Neut # (Auto) Lymph # (Auto) Upson # (Auto) Eos # (Auto) Baso # (Auto) Absolute Nucleated RBC Nucleated RBC % Manual Slide Review Platelet Estimate Platelet Morphology RBC Morph Micro Appear PT 18.3 H INR 1.7 H Sodium Potassium Chloride Carbon Dioxide Anion Gap BUN Creatinine Estimated GFR (MDRD) Glucose Calcium Magnesium 1.8 Total Bilirubin AST ALT Alkaline Phosphatase Ammonia Total Protein Albumin Globulin Albumin/Globulin Ratio Lipase Blood Type AB POSITIVE Antibody Screen NEGATIVE Crossmatch IS Only See Detail PD Medical Decision Making - ED course Complexity details: reviewed results, re-evaluated patient, considered differential, d/w patient ED course: 67-year-old male who has a history of alcoholic cirrhosis presents to the emergency department for evaluation of feeling generally unwell for the last week. 7 days ago he had a day of vomiting and diarrhea. Denies any hematic emesis or melena or hematochezia. He is followed by GI through [facility]. I was able to access [facility] chart notes and see that he had an EGD completed in November 2020 that showed grade 1 esophageal varices. Patient reports he is previously on Protonix but has not taken for quite some time. He is currently on Lasix and spironolactone only for management of the cirrhosis. Here in the emergency department he presents well-appearing. I did not elicit any abdominal tenderness. I initially obtained a CBC and electrolytes. It does show a marked anemia with a hemoglobin of 6.8. This is a drop of 2 g in comparison to her most recent labs which were in March 2022 showing a hgb of 9. Historically I see that he has had hgb as low as 6.4 in the past. Clinically, this anemia is most likely a gradual decline over time. He is also mildly thrombocytopenic. His electrolytes are also modestly deranged with some hyponatremia and hyperbilirubinemia though improved when compared to most recent labs in March 2022. Patient's MELD score today is calculated 24 points giving him a 15% 90-day mortality risk. I suspect the cause of the anemia to be slow bleeding esophageal varices. It may also be gastritis associated with NSAID use and stopping his protonix. He most certainly warrants an EGD in follow-up. However to treat the symptoms acutely today we will administer 1 unit of PRBCs. Unfortunately there are no beds for admission tonight at the hospital. I have also given the patient 40 mg of Protonix IV which I feel he would benefit from taking as an outpatient. He was administered some Zofran here which he stated improved his nausea. 2200: pt will be signed out to my night time colleague to f/u on the PRBC infusion and reevaluate. assuming improved condition and safe for dc home, a rx for protonix and zofran was sent to [facility]. pt was also advised to stop NSAID use. Departure - Departure Clinical Impression: History of esophageal varices, Thrombocytopenia Alcoholic cirrhosis Qualifiers: Ascites presence: without ascites Qualified Code(s): K70.30 - Alcoholic cirrhosis of liver without ascites Anemia Qualifiers: Anemia type: unspecified type Qualified Code(s): D64.9 - Anemia, unspecified Prescriptions: Pantoprazole Sodium [Protonix] 40 mg PO DAILY #30 tab Ondansetron Odt [Zofran] 4 mg TL Q6H PRN #10 tablet PRN Reason: Nausea / Vomiting Comments: Alvaro you were seen today in the emergency department because you have been feeling generally unwell for the last week. You have had some mild pain in your upper abdomen. You do have a history of alcoholic cirrhosis. I was able to review chart notes through [facility] and you did have an EGD completed in November 2020. At that time it did show grade 1 esophageal varices. These are common in people with cirrhosis and they can slowly bleed over time causing anemia. You also take david an NSAID medication, Meloxicam, for you pain. This can cause gastritis and slow GI bleeds. You must STOP taking this immediately. Here in the emergency department we did give you a unit of packed red blood cells. In order to help manage her other symptoms I have sent a prescription for Prot jalil, an acid physical laboratory assistant, to the [facility] in [place]. You should take this every day. I have also sent some Zofran and nausea medicine to that same pharmacy. It is critical that you contact your gastroenterology team. You will need to have an EGD completed as soon as possible. If you find that you have worsening symptoms, vomit any blood, or have black tarry stools you must return immediately to the ER.
[2022-10-16] MEDS ORDERED: PANTOPRAZOLE 40 MG VIAL IVP STA (20:43)
[2022-10-16 20:50] LABS: BASOPHILS % (AUTO) 0.1 %; EOSINOPHILS # (AUTO) 0.2 10^3/uL (0.0-0.7); EOSINOPHILS % (AUTO) 2.5 %; HCT - HEMATOCRIT 21.1 % (42.0-52.0); LYMPHOCYTES # (AUTO) 1.8 10^3/uL (1.5-3.5); MEAN CORPUSCULAR HEMOGLOBIN 30.1 pg (27.0-31.0); MEAN CORPUSCULAR HGB CONC 32.2 g/dL (32.0-36.0); MEAN CORPUSCULAR VOLUME 93.4 fL (80.0-94.0); MEAN PLATELET VOLUME 11.9 fL (7.4-11.4); MONOCYTES # (AUTO) 0.9 10^3/uL (0.0-1.0); MONOCYTES % (AUTO) 10.4 %; NEUTROPHILS # (AUTO) 5.8 10^3/uL (1.5-6.6); NEUTROPHILS % (AUTO) 66.7 %; RED BLOOD COUNT 2.26 10^6/uL (4.70-6.10); RED CELL DISTRIBUTION WIDTH 16.3 % (12.0-15.0); WHITE BLOOD COUNT 8.7 x10^3/uL (4.8-10.8)
[2022-10-16 20:52] LABS: HGB - HEMOGLOBIN 6.8 g/dL (14.0-18.0)
[2022-10-16 20:53] LABS: SLIDE REVIEW? Indicated
[2022-10-16 20:58] LABS: ALBUMIN 3.5 g/dL (3.2-5.5); ALBUMIN/GLOBULIN RATIO 1.6 (1.0-2.2); BILIRUBIN,TOTAL 2.7 mg/dL (0.2-1.0); CALCIUM 8.4 mg/dL (8.5-10.3); POTASSIUM 2.9 mmol/L (3.5-5.0); TOTAL PROTEIN 5.7 g/dL (6.7-8.2)
[2022-10-16 21:30] LABS: PLATELET ESTIMATE, MANUAL DECREASED (<130,000) (NORMAL); PLATELET MORPHOLOGY NORMAL APPEARANCE (NORMAL)
[2022-10-16 21:31] LABS: PLT - PLATELET COUNT 86 10^3/uL (130-450)
[2022-10-16 21:33] LABS: INR 1.7 (0.8-1.2); PT - PROTHROMBIN TIME 18.3 secs (9.9-12.6)
[2022-10-16] MEDS ORDERED: POTASSIUM CHLORIDE 20 MEQ TABLET PO STA (21:51)
--- NOTE | 2022-10-16 23:55 | ED Physician Documentation ---
ED Addendum - Addendum Addendum: I did speak with the GI doctor from [facility], she recommends stopping the meloxicam and restarting Protonix. Patient does see a local GI physician. Dr. Toro. He currently has a blood transfusion going. He is currently asymptomatic. Feels well. Tolerating p.o. without difficulty. He will be signed out to the oncoming emergency department physician. His potassium was replaced by the prior provider. This document was made in part using voice recognition software. While efforts are made to proofread this document, sound alike and grammatical errors may occur.
[2022-10-17 00:46] VITALS: BP 126/54
--- NOTE | 2022-10-17 01:00 | ED Physician Documentation ---
ED Addendum - Addendum Addendum: 10/17/22 00:59 Patient endorsed to me by Dr. Siu awaiting transfusion. Patient tolerated transfusion well and plans to f/u outpatient GI. strict return precautions given. Impression 1. GIB 2. Anemia Condition stable Disposition home
[2022-10-17] MEDS ORDERED: ONDANSETRON ODT 4 MG Prepack 2 TL PRN (01:10)
== END 2022-10-17 01:25 | disposition home or self-care (01) ==
LOC: EDUNIT# → ED 19:54
DX: K70.30 Alcoholic cirrhosis of liver without ascites (principal); E87.6 Hypokalemia; K92.2 Gastrointestinal hemorrhage, unspecified; F17.200 Nicotine dependence, unspecified, uncomplicated
CPT/HCPCS: 36415; 36430; 80053; 82140; 83690; 83735; 85025; 85610; 86850; 86900; 86901; 86920; 96374; 99284; 99285; A9270; P9016

== ENCOUNTER 2022-12-31 16:31 | Outpatient (CLI) | payer OTHER, MEDICARE | END 2022-12-31 16:32 | disposition home or self-care (01) | LOC: LAB 16:31 | PROVIDERS: ATTEND Internal Medicine Hematology & Oncology | DX: Z53.9 Procedure and treatment not carried out, unspecified reason (principal) ==